=== PATIENT | female | born 1965 | race Caucasian/White ===

== ENCOUNTER 2016-06-25 12:58 | Inpatient (IN) | payer SELFPAY ==
[~2016-06-25] VITALS: Ht 149.9 cm; Wt 83.0 kg
[2016-06-25] VITALS (12 sets, daily range): BP systolic 136–186; BP diastolic 60–82
--- NOTE | ~2016-06-25 | O ---
[place], [place] OPERATIVE NOTE NAME: [id number] UNIT #: [id number] ROOM: 408 DOCTOR: NATANAEL LEON MD BIRTHDATE: [birth year] DOS: 06/25/2016 PREOPERATIVE DIAGNOSIS: Acute appendicitis. POSTOPERATIVE DIAGNOSIS: Perforated appendicitis without abscess. PROCEDURE: Laparoscopic appendectomy. SURGEON: Natanael Leon M.D. ANESTHESIA: General endotracheal. ESTIMATED BLOOD LOSS: 25 mL. COMPLICATIONS: None. INDICATIONS: This patient is a 50-year-old white female who was admitted from the ER with a 3-day history of abdominal pain. CT scan was highly suggestive of appendicitis. Her white blood cell count was 18,000 and clinical exam was consistent with appendicitis as well. After discussing options with her, she elected to proceed with surgery. She is brought for appendectomy. DESCRIPTION OF PROCEDURE: The patient was placed on the operating table in supine position. After achieving adequate general endotracheal anesthesia, a Franco catheter was inserted following which the abdomen was then prepped and draped in sterile fashion. A small vertical midline supraumbilical incision was then made. Incision was carried down through the subcutaneous fat to expose the fascia. Fascia was then opened transversely and the peritoneal cavity was entered. 0 Vicryl stay sutures were placed in the fascia, following which the Muna blunt port was then inserted. After the development of an adequate pneumoperitoneum, the laparoscope was then introduced. Visualization of the tissues immediately deep to our insertion site revealed no evidence of injury to the bowel or any other structures. Upon visual inspection of the abdomen, immediately noted is purulent turbid appearing fluid in the pelvis. The omentum is covering the right lower quadrant. There were no other significant abnormalities noted initially. A small vertical midline incision was made just superior to the pubis through which a 5 mm port was then inserted under direct visualization. A small transverse incision was made in the left lower quadrant through which a 12 mm port was inserted under direct visualization. Two Endo Babcocks were then inserted and the omentum was then retracted superiorly exposing the markedly thickened and inflamed appendix with its tip densely adherent to one area of omentum. This appears to be the site of perforation. The Endo Higginson was then used to retract the appendix and cecum medially, EndoShears was then used to take down the adhesions to the cecum for mobilization. The appendix was adherent to the terminal ileum as well as to the small bowel mesentery in this area. Blunt dissection was then used to separate these structures. The appendix was then elevated towards the anterior abdominal wall and using the Endo Peanut, blunt dissection was then performed at the base of the appendix to create a window in the mesoappendix. After successfully completing this maneuver, the Endo-NELSON was then brought in through the left [place], [place] OPERATIVE NOTE NAME: MARY TUBBS UNIT #: [id number] ROOM: [facility] DOCTOR: NATANAEL LEON MD BIRTHDATE: [birth year] lower quadrant port site, the Endo-NELSON 45 with a vascular load was then passed across the appendix at its origin and the appendix was then transected noting that the tip of the appendix was densely adherent to the omentum. Another firing of the Endo-NELSON was performed across the omentum to mobilize the tip of the appendix and the remaining mesoappendix was then also transected with 2 additional firings of the Endo-NELSON completely freeing the appendix. An EndoCatch was then brought onto the field and passed through the umbilical port site with the scope brought into the left lower quadrant port site. The appendix was placed in the EndoCatch and brought out through the umbilical port site without difficulty. After reinserting the Hidalgo and redeveloping the pneumoperitoneum, copious irrigation was then performed of the structures in the right lower quadrant and throughout the pelvis and the right upper quadrant and perihepatic tissues. Excellent hemostasis was noted at all staple lines and in the mesentery until the 3 liters of irrigation was used. At that point, the left lower quadrant port was removed. An 0 Vicryl suture was used to close the fascia at this port site. The pneumoperitoneum was redeveloped to ensure that there was no entrapment of intra-abdominal tissues in this closure. At that point, the 2 remaining ports were then removed and the pneumoperitoneum completely decompressed as well as manually decompressed. The fascia at the umbilical port site was closed with an additional 0 Vicryl suture in [id number] fashion and existing sutures were then tied. Copious irrigation was performed at all port sites and after assuring good hemostasis, the skin was closed with a running 4-0 Monocryl subcuticular stitch at the umbilical and left lower quadrant ports and the suprapubic port site was closed with 2 interrupted 4-0 Monocryl sutures, subcuticular sutures and the skin glue was then applied. The patient tolerated the procedure well and taken to PACU in good condition. All tape, needle, sponge, and instrument counts were correct. NATANAEL LEON MD CM:OPRECORD:OPERATIVE NOTE 41 23 NATANAEL LEON MD 06/25/162123 interface
[2016-06-25] MEDS ORDERED: VITAMIN C500 M1 PO (13:07)
[2016-06-25 13:37] LABS: BASO % 0.2 % (0.0-1.0); EOS % 0.1 % (1.0-4.0); HEMATOCRIT 42.4 % (37.0-47.0); HEMOGLOBIN 13.9 g/dl (12.0-16.0); IG # 0.1 10*3/uL (0.0-0.1); LYMPH # 1.7 10*3/uL (1.3-4.4); LYMPH % 9.3 % (27.0-41.0); MEAN CELL VOLUME 88.9 fl (81.0-99.0); MEAN CORPUSCULAR HGB 29.1 pg (27.0-31.0); MEAN CORPUSCULAR HGB CONC 32.8 g/dl (33.0-37.0); MEAN PLATELET VOLUME 10.6 fl (9.6-12.3); MONO % 5.2 % (3.0-9.0); NEUT # 15.9 10*3/uL (2.3-7.9); NEUT % 84.7 % (47.0-73.0); PLATELET COUNT AUTOMATED 308 10*3/uL (130-400); RED BLOOD COUNT 4.77 10*6/uL (4.10-5.10); WHITE BLOOD COUNT 18.7 10*3/uL (4.8-10.8)
[2016-06-25 13:37] LABS: BILIRUBIN NEGATIVE (NEGATIVE); BLOOD NEGATIVE (NEGATIVE); CLARITY SL CLOUDY (CLEAR); COLOR YELLOW (YELLOW); GLUCOSE NEGATIVE (NEGATIVE); KETONE 2+ (NEGATIVE); LEUKO ESTERASE NEGATIVE (NEGATIVE); NITRITE NEGATIVE (NEGATIVE); PROTEIN NEGATIVE (NEGATIVE); UROBILINOGEN 0.2 E.U./dl (0.2-1.0)
[2016-06-25 13:44] LABS: MUCOUS 2+; URINE REFLEX COMMENT NO (NO)
[2016-06-25 13:58] LABS: ALBUMIN 3.8 gm/dl (3.1-4.5); ALKALINE PHOSPHATASE 102 U/L (45-117); BILIRUBIN, TOTAL 0.5 mg/dl (0.2-1.0); BUN 12 mg/dl (7-24); CARBON DIOXIDE 26 mmol/L (21-32); CHLORIDE 104 mmol/L (98-107); EST GLOM FILT AFRICAN AMERICAN > 60 ml/min; GLUCOSE 133 mg/dL (65-99); MAGNESIUM 2.3 mg/dL (1.5-2.1); POTASSIUM 3.5 mmol/L (3.5-5.1); SGOT/AST 11 IU/L (3-35); SGPT/ALT 17 U/L (12-78); SODIUM 142 mmol/L (136-145); TOTAL PROTEIN 7.3 gm/dL (6.4-8.2)
[2016-06-25] MEDS ORDERED: B COMPLEX1 EACH PO (17:11)
[2016-06-25] MEDS ORDERED: VITAMIN E400 UNI2 PO (17:12)
[2016-06-25] MEDS ORDERED: VITAMIN B1250 MCG PO (17:12)
[2016-06-25] MEDS ORDERED: ZYRTEC10 M3 PO (17:13)
[2016-06-25 17:43] LABS: PROTHROMBIN TIME 10.7 SECONDS (9.0-12.4)
[2016-06-26] VITALS: BP 146/65
[2016-06-26 04:00] VITALS: BP 122/70
[2016-06-26 06:58] LABS: BASO % 0.1 % (0.0-1.0); IG # 0.1 10*3/uL (0.0-0.1); LYMPH # 0.8 10*3/uL (1.3-4.4); LYMPH % 5.3 % (27.0-41.0); MEAN CELL VOLUME 88.8 fl (81.0-99.0); MEAN CORPUSCULAR HGB 28.9 pg (27.0-31.0); MEAN CORPUSCULAR HGB CONC 32.6 g/dl (33.0-37.0); MEAN PLATELET VOLUME 10.5 fl (9.6-12.3); MONO # 0.7 10*3/uL (0.1-1.0); MONO % 4.5 % (3.0-9.0); NEUT # 13.1 10*3/uL (2.3-7.9); NEUT % 89.6 % (47.0-73.0); PLATELET COUNT AUTOMATED 232 10*3/uL (130-400); RED BLOOD COUNT 3.49 10*6/uL (4.10-5.10); RED CELL DISTRI WIDTH 14.4 % (0-14.5); WHITE BLOOD COUNT 14.6 10*3/uL (4.8-10.8)
[2016-06-26 07:00] LABS: HEMOGLOBIN 10.1 g/dl (12.0-16.0)
[2016-06-26 07:32] LABS: BUN 9 mg/dl (7-24); CARBON DIOXIDE 25 mmol/L (21-32); CHLORIDE 107 mmol/L (98-107); CHOLESTEROL 162 mg/dL (<200); EST GLOM FILT AFRICAN AMERICAN > 60 ml/min; GLUCOSE 152 mg/dL (65-99); HDL CHOLESTEROL 52 mg/dl (40-60); LDL CHOLESTEROL 91 mg/dL (9-159); POTASSIUM 3.6 mmol/L (3.5-5.1); SODIUM 140 mmol/L (136-145); TRIGLYCERIDES 93 mg/dl (<150); VLDL CHOLESTEROL 19 mg/dL (6-40)
[2016-06-26 08:00] VITALS: BP 131/64
[2016-06-26 08:40] LABS: FOLIC ACID 17.86 ng/mL (>5.38)
[2016-06-26] MEDS ORDERED: Motrin,Rufen800 MG PO (10:02)
[2016-06-26 12:00] VITALS: BP 131/60
== END 2016-06-26 15:05 | disposition home or self-care (01) | DRG 343 ==
LOC: ED 12:58 → EDHOLD 14:48 → 4E 15:02
PROVIDERS: Family Medicine; Nurse Practitioner Family; Surgery
PROC: 0DTJ4ZZ Resection of Appendix, Percutaneous Endoscopic Approach (ICD-10-PCS; principal; 2016-06-25)
DX: K35.80 Unspecified acute appendicitis (principal); I10 Essential (primary) hypertension; E66.9 Obesity, unspecified; D72.829 Elevated white blood cell count, unspecified; R19.7 Diarrhea, unspecified; J30.1 Allergic rhinitis due to pollen; G89.29 Other chronic pain; M54.9 Dorsalgia, unspecified; Z82.0 Family history of epilepsy and other diseases of the nervous system; Z88.6 Allergy status to analgesic agent; Z82.49 Family history of ischemic heart disease and other diseases of the circulatory system; Z84.89 Family history of other specified conditions; Z83.49 Family history of other endocrine, nutritional and metabolic diseases; Z88.2 Allergy status to sulfonamides; Z88.1 Allergy status to other antibiotic agents; Z88.5 Allergy status to narcotic agent; Z79.1 Long term (current) use of non-steroidal anti-inflammatories (NSAID); Z79.899 Other long term (current) drug therapy; Z68.37 Body mass index [BMI] 37.0-37.9, adult

== ENCOUNTER 2016-06-30 11:47 | Emergency (ER) | payer SELFPAY ==
[~2016-06-30] VITALS: Ht 149.8 cm; Wt 77.1 kg
[~2016-06-30 11:47] MED LIST: B COMPLEX1 EACH PO; Motrin,Rufen800 MG PO; VITAMIN B1250 MCG PO; VITAMIN C500 M1 PO; VITAMIN E400 UNI2 PO; ZYRTEC10 M3 PO
[2016-06-30 12:32] LABS: BASO % 0.2 % (0.0-1.0); EOS # 0.2 10*3/uL (0.0-0.4); EOS % 2.1 % (1.0-4.0); HEMOGLOBIN 11.1 g/dl (12.0-16.0); IG # 0.1 10*3/uL (0.0-0.1); LYMPH # 1.4 10*3/uL (1.3-4.4); LYMPH % 16.4 % (27.0-41.0); MEAN CELL VOLUME 88.3 fl (81.0-99.0); MEAN CORPUSCULAR HGB 28.8 pg (27.0-31.0); MEAN CORPUSCULAR HGB CONC 32.6 g/dl (33.0-37.0); MEAN PLATELET VOLUME 9.9 fl (9.6-12.3); MONO # 0.6 10*3/uL (0.1-1.0); MONO % 7.3 % (3.0-9.0); NEUT # 6.3 10*3/uL (2.3-7.9); NEUT % 73.4 % (47.0-73.0); PLATELET COUNT AUTOMATED 303 10*3/uL (130-400); RED BLOOD COUNT 3.85 10*6/uL (4.10-5.10); RED CELL DISTRI WIDTH 13.8 % (0-14.5); WHITE BLOOD COUNT 8.5 10*3/uL (4.8-10.8)
[2016-06-30 12:45] LABS: ALBUMIN 3.6 gm/dl (3.1-4.5); ALKALINE PHOSPHATASE 92 U/L (45-117); BILIRUBIN, TOTAL 0.7 mg/dl (0.2-1.0); BUN 7 mg/dl (7-24); CARBON DIOXIDE 30 mmol/L (21-32); CHLORIDE 103 mmol/L (98-107); EST GLOM FILT AFRICAN AMERICAN > 60 ml/min; GLUCOSE 94 mg/dL (65-99); POTASSIUM 2.9 mmol/L (3.5-5.1); SGOT/AST 16 IU/L (3-35); SGPT/ALT 16 U/L (12-78); SODIUM 144 mmol/L (136-145); TOTAL PROTEIN 7.2 gm/dL (6.4-8.2)
[2016-06-30] MEDS ORDERED: K-TAB20 MEQ PO (16:45)
[2016-06-30] MEDS ORDERED: KEFLEX500 M1 PO (16:45)
== END 2016-06-30 17:22 | disposition home or self-care (01) ==
LOC: ED 11:47
PROVIDERS: Nurse Practitioner Family
DX: L03.311 Cellulitis of abdominal wall (principal); R03.0 Elevated blood-pressure reading, without diagnosis of hypertension; E87.6 Hypokalemia; Z88.6 Allergy status to analgesic agent; Z88.1 Allergy status to other antibiotic agents; Z88.2 Allergy status to sulfonamides; Z79.899 Other long term (current) drug therapy; Z90.49 Acquired absence of other specified parts of digestive tract

== ENCOUNTER 2017-12-26 12:12 | Emergency (ER) | payer OTHER ==
[~2017-12-26] VITALS: Ht 149.8 cm; Wt 83.9 kg
--- NOTE | ~2017-12-26 | EKG ---
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
[~2017-12-26 12:12] MED LIST changes: +K-TAB20 MEQ PO; +KEFLEX500 M1 PO
[2017-12-26] MEDS ORDERED: HAWTHORN BERRY PO (12:29)
[2017-12-26 13:11] LABS: BASO % 0.5 % (0.0-1.0); EOS # 0.2 10*3/uL (0.0-0.4); EOS % 2.4 % (1.0-4.0); HEMATOCRIT 41.9 % (37.0-47.0); HEMOGLOBIN 14.2 g/dl (12.0-16.0); LYMPH # 1.1 10*3/uL (1.3-4.4); MEAN CELL VOLUME 89.1 fl (81.0-99.0); MEAN CORPUSCULAR HGB 30.2 pg (27.0-31.0); MEAN CORPUSCULAR HGB CONC 33.9 g/dl (33.0-37.0); MONO # 0.7 10*3/uL (0.1-1.0); NEUT # 4.3 10*3/uL (2.3-7.9); NEUT % 67.8 % (47.0-73.0); PLATELET COUNT AUTOMATED 242 10*3/uL (130-400); RED CELL DISTRI WIDTH 12.9 % (0-14.5); WHITE BLOOD COUNT 6.3 10*3/uL (4.8-10.8)
[2017-12-26 13:20] LABS: ACT PARTIAL THROMBO TIME 28.1 SECONDS (20.8-31.5)
[2017-12-26 13:26] LABS: ALBUMIN 3.8 gm/dl (3.1-4.5); ALKALINE PHOSPHATASE 90 U/L (45-117); BUN 5 mg/dl (7-24); CHLORIDE 105 mmol/L (98-107); CREATININE 0.75 mg/dL (0.55-1.02); LIPASE 105 U/L (73-393); POTASSIUM 3.6 mmol/L (3.5-5.1); SGOT/AST 12 IU/L (3-35); SGPT/ALT 17 U/L (12-78); SODIUM 139 mmol/L (136-145); TOTAL PROTEIN 7.3 gm/dL (6.4-8.2); TROPONIN I < 0.015 ng/ml (<0.045)
[2017-12-26] MEDS ORDERED: DOXYCYCLINE100 M3 PO (14:21)
== END 2017-12-26 14:30 | disposition home or self-care (01) ==
LOC: ED 12:12
PROVIDERS: Emergency Medicine
DX: J20.9 Acute bronchitis, unspecified (principal); I10 Essential (primary) hypertension; G89.29 Other chronic pain; E66.9 Obesity, unspecified; Z68.30 Body mass index [BMI] 30.0-30.9, adult; Z90.49 Acquired absence of other specified parts of digestive tract; Z88.8 Allergy status to other drugs, medicaments and biological substances; Z88.5 Allergy status to narcotic agent; Z88.2 Allergy status to sulfonamides; Z88.1 Allergy status to other antibiotic agents; Z79.899 Other long term (current) drug therapy

== ENCOUNTER → 2018-08-28 | Outpatient (CLI) | payer OTHER ==
[~2018-08-28] MED LIST changes: +AMLODIPINE BESYL5 MG PO; +ATORVASTATIN CA20 M1 PO; +COMPAZINE10 M1 PO; +COMPAZINE5 M3 PO; +DIFLUCAN150 MG PO; +DOXYCYCLINE100 M3 PO; +HAWTHORN BERRY PO; +HYDROCHLOROTHIA25 M1 PO; +KLOR-CON M2020 ME1 PO; +LOPRESSOR25 MG PO; +MACROBID100 M1 PO; +MAGNESIUM OXID400 MG PO; +OMEPRAZOLE D/R20 MG PO; +POTASSIUM CHLO10 MEQ PO; +PROCHLORPERAZIN10 MG PO; +ZANTAC 150150 MG PO; +ZOSYN 3.373.375 GM/5 IV
== END | disposition home or self-care (01) ==
LOC: MAMMO 12:39
DX: N63.10 Unspecified lump in the right breast, unspecified quadrant (principal); N63.20 Unspecified lump in the left breast, unspecified quadrant; C56.9 Malignant neoplasm of unspecified ovary

== ENCOUNTER → 2018-08-30 | Outpatient (CLI) | payer OTHER | END | disposition home or self-care (01) | LOC: CT 00:40 | DX: C56.9 Malignant neoplasm of unspecified ovary (principal); N63.11 Unspecified lump in the right breast, upper outer quadrant; Z87.42 Personal history of other diseases of the female genital tract ==

== ENCOUNTER → 2018-10-18 | Outpatient (CLI) | payer OTHER | END | disposition home or self-care (01) | LOC: RAD 10:51 | DX: C56.9 Malignant neoplasm of unspecified ovary (principal); M53.3 Sacrococcygeal disorders, not elsewhere classified ==

== ENCOUNTER 2018-10-23 20:32 | Inpatient (IN) | payer OTHER ==
[~2018-10-23] VITALS: Ht 149.8 cm; Wt 61.8 kg
--- NOTE | ~2018-10-23 | EKG ---
[place], [place] ELECTROCARDIOGRAM REPORT NAME: MARY TUBBS UNIT #: [id number] ROOM: 516 DOCTOR: ALEKSANDR DRAFT REPORT BIRTHDATE: [birth year] [facility] Test Date: 2018-10-23 Test Time: 21:22:31 Pat Name: MARY TUBBS Department: Room: 516 Gender: F Gasoline Engine Assembler: : 1965 Requested By: RU AGUIAR Order Number: [id number] Reading MD: Pita Pierce MD Measurements Intervals Gruver Rate: 89 P: 62 [place]: 150 QRS: 2 QRSD: 89 T: 19 QT: 366 QTc: 446 Interpretive Statements Sinus rhythm Compared to ECG 07/31/2018 09:44:49 Left ventricular hypertrophy no longer present T-wave abnormality no longer present Electronically Signed On 10-24-2018 12:28:56 PDT by Pita Pierce MD CM:EKGRPT:ELECTROCARDIOGRAM REPORT 21 1228 RU BRANDON DRAFT REPORT RU AGUIAR MD
[~2018-10-23 20:32] MED LIST changes: -AMLODIPINE BESYL5 MG PO
[2018-10-23 20:36] VITALS: BP 145/66
[2018-10-23 21:11] LABS: BILIRUBIN 1+ (NEGATIVE); BLOOD TRACE-INTACT (NEGATIVE); CLARITY SL CLOUDY (CLEAR); COLOR YELLOW (YELLOW); GLUCOSE NEGATIVE (NEGATIVE); KETONE TRACE (NEGATIVE); LEUKO ESTERASE TRACE (NEGATIVE); NITRITE NEGATIVE (NEGATIVE); PH 5.5 (5.0-9.0); SPECIFIC GRAVITY 1.025 (1.005-1.030); UROBILINOGEN 0.2 E.U./dl (0.2-1.0)
[2018-10-23 21:17] LABS: EPITHELIAL CELLS 21-30; MUCOUS 3+
[2018-10-23 21:18] LABS: BACTERIA 2+
[2018-10-23 21:34] LABS: HEMATOCRIT 29.8 % (37.0-47.0); HEMOGLOBIN 10.2 g/dl (12.0-16.0); MEAN CORPUSCULAR HGB 33.9 pg (27.0-31.0); MEAN CORPUSCULAR HGB CONC 34.2 g/dl (33.0-37.0); MEAN PLATELET VOLUME 11.5 fl (9.6-12.3); PLATELET COUNT AUTOMATED 46 10*3/uL (130-400); RED BLOOD COUNT 3.01 10*6/uL (4.10-5.10); RED CELL DISTRI WIDTH 13.7 % (0-14.5)
[2018-10-23 21:45] LABS: ACT PARTIAL THROMBO TIME 27.6 SECONDS (20.0-32.1); INTERNATIONAL NORM RATIO 0.9 (2.0-3.5)
--- NOTE | 2018-10-23 21:50 | NUR ---
NEUTROPENIC PRECAUTIONS INITIATED.
[2018-10-23 21:51] LABS: ALBUMIN 3.4 gm/dl (3.1-4.5); ALKALINE PHOSPHATASE 95 U/L (45-117); BUN 22 mg/dl (7-24); CHLORIDE 100 mmol/L (98-107); CREATININE 0.81 mg/dL (0.55-1.02); LIPASE 76 U/L (73-393); POTASSIUM 3.4 mmol/L (3.5-5.1); SGOT/AST 12 IU/L (3-35); SGPT/ALT 17 U/L (12-78); SODIUM 133 mmol/L (136-145); TOTAL PROTEIN 6.7 gm/dL (6.4-8.2)
[2018-10-23 21:53] LABS: TROPONIN I < 0.015 ng/ml (<0.045)
--- NOTE | 2018-10-23 21:55 | NUR ---
DR. YIN NOTIFIED OF CRITICAL LAB RESULT.
[2018-10-23 22:09] LABS: TOTAL CELLS COUNTED 100 #CELLS
[2018-10-23 22:10] LABS: PLATELET SUFFICIENCY LOW (NORMAL)
[2018-10-23 22:20] LABS: WHITE BLOOD COUNT 1.4 10*3/uL (4.8-10.8)
[2018-10-23 23:52] VITALS: BP 142/72
--- NOTE | 2018-10-24 | NUR ---
PATIENT PROVIDE DMASK FOR TRANSPORTATION
[2018-10-24 00:08] VITALS: BP 145/56
--- NOTE | 2018-10-24 00:08 | NUR ---
A 53, admitted to 5E, under the services of ALPESH Polanco DO with a diagnosis of FEVER. Chief complaint is FEVER. Patient arrived via CART from ER. Monitor applied. Initial assessment completed. Vital signs taken and recorded. ALPESH POLANCO DO notified of admission to the unit. Orders received. See assessment for past medical history, medications and allergies. Patient and/or family oriented to unit. [facility] 5E visitation policy reviewed. Clothing/patient valuable form completed. PT HAS NO OPEN AREAS AND IS INDEPENDENT. PT HAS A MEDIPORT IN THE RT UPPER CHEST. PT HAS NO COMPLIANTS AT THIS TIME. RACHEL CAMPBELL
--- NOTE | 2018-10-24 01:07 | NUR ---
CALLED DR. XAVIER AND NOTIFIED HER THAT MED REQ WAS UP TO DATE EXCEPT FOR THE PATIENTS BP MEDICATION. PT STATED THAT SHE WOULD BE ABLE TO GET THAT VERIFIED IN THE AM. SEE ORDERS.
[2018-10-24 06:55] LABS: HEMATOCRIT 25.9 % (37.0-47.0); HEMOGLOBIN 8.8 g/dl (12.0-16.0); MEAN PLATELET VOLUME 11.2 fl (9.6-12.3); PLATELET COUNT AUTOMATED 36 10*3/uL (130-400); RED BLOOD COUNT 2.59 10*6/uL (4.10-5.10); RED CELL DISTRI WIDTH 13.7 % (0-14.5)
[2018-10-24 06:58] LABS: WHITE BLOOD COUNT 1.6 10*3/uL (4.8-10.8)
[2018-10-24 07:05] LABS: ACT PARTIAL THROMBO TIME 29.2 SECONDS (20.0-32.1)
[2018-10-24 07:22] LABS: BUN 14 mg/dl (7-24); CHLORIDE 107 mmol/L (98-107); POTASSIUM 3.5 mmol/L (3.5-5.1); SODIUM 139 mmol/L (136-145)
[2018-10-24 07:30] LABS: PLATELET SUFFICIENCY LOW (NORMAL); TOTAL CELLS COUNTED 100 #CELLS
[2018-10-24 07:36] LABS: CHOLESTEROL 148 mg/dL (<200); CREATININE 0.59 mg/dL (0.55-1.02); HDL CHOLESTEROL 37 mg/dl (40-60); LDL CHOLESTEROL 77 mg/dL (9-159); PHOSPHOROUS 3.5 mg/dL (2.5-4.9); TRIGLYCERIDES 169 mg/dl (<150); VLDL CHOLESTEROL 34 mg/dL (6-40)
[2018-10-24 08:00] VITALS: BP 140/60
[2018-10-24 08:39] LABS: VITAMIN D, 25-HYDROXY 24.1 ng/mL (30-100)
[2018-10-24] MEDS ORDERED: AMLODIPINE BESYL5 MG PO (10:55)
[2018-10-24 12:00] VITALS: BP 139/64
--- NOTE | 2018-10-24 12:07 | NUR ---
Industrial Maintenance Technician in to talk to patient. Patient states lives at HOME with . There are FEW steps in the home. Physician: DANISHA Pharmacy: [facility] [place] [facility]: [facility] Patient's level of ADLs: MINIMAL ASSIST Patient has working utilities: YES DME: NONE Follow-up physician's appointment after d/c: PT STATES SHE SEE HER ONCOLOGIST AND HAS VISITING PHYSICIANS Does patient want to access PORTAL?: NO Discharge plan PT STATES SHE WILL RETURN HOME WITH HER ON DISCHARGE WITH [facility]. DENIES SHE WILL HAVE ANY OTHER NEEDS AT THIS TIME. STATES SHE HAS EVERYTHING IN PLACE SHE NEEDS. WILL CONTINUE TO FOLLOW. STATES SHE WILL HAVE A RIDE HOME.. TAMIKO ONEILL
[2018-10-24 16:00] VITALS: BP 112/96
--- NOTE | 2018-10-24 19:13 | NUR ---
24 HR chart check completed.
[2018-10-24 20:00] VITALS: BP 128/61
[2018-10-25] VITALS: BP 126/60
[2018-10-25 06:49] LABS: HEMATOCRIT 25.4 % (37.0-47.0); HEMOGLOBIN 8.6 g/dl (12.0-16.0); MEAN CORPUSCULAR HGB 33.9 pg (27.0-31.0); MEAN CORPUSCULAR HGB CONC 33.9 g/dl (33.0-37.0); MEAN PLATELET VOLUME 12.2 fl (9.6-12.3); PLATELET COUNT AUTOMATED 35 10*3/uL (130-400); RED BLOOD COUNT 2.54 10*6/uL (4.10-5.10); RED CELL DISTRI WIDTH 13.5 % (0-14.5); WHITE BLOOD COUNT 2.8 10*3/uL (4.8-10.8)
[2018-10-25 07:37] LABS: BASOPHILS 1 % (0-1); TOTAL CELLS COUNTED 100 #CELLS
[2018-10-25 07:38] LABS: DOHLE BODIES FEW; PLATELET SUFFICIENCY LOW (NORMAL); TOXIC GRANULATION SLIGHT
[2018-10-25 08:00] VITALS: BP 136/55
--- NOTE | 2018-10-25 11:24 | NUR ---
PT CONTINUES TO DENY SHE WILL HAVE NEEDS ON DISCHARGE. [facility] WILL CONTINUE TO FOLLOW.
[2018-10-25 12:00] VITALS: BP 136/61
--- NOTE | 2018-10-25 12:34 | NUR ---
CLINICALS AND ORDER TO RESUME HOME HEALTH FAXED TO [facility].
[2018-10-25 18:00] VITALS: BP 142/63
[2018-10-25 20:00] VITALS: BP 138/72
[2018-10-26] VITALS: BP 125/58
[2018-10-26 06:03] LABS: WHITE BLOOD COUNT 5.2 10*3/uL (4.8-10.8)
[2018-10-26 06:05] LABS: HEMATOCRIT 26.1 % (37.0-47.0); HEMOGLOBIN 8.8 g/dl (12.0-16.0); MEAN CELL VOLUME 99.6 fl (81.0-99.0); MEAN CORPUSCULAR HGB 33.6 pg (27.0-31.0); MEAN CORPUSCULAR HGB CONC 33.7 g/dl (33.0-37.0); MEAN PLATELET VOLUME 12.8 fl (9.6-12.3); PLATELET COUNT AUTOMATED 45 10*3/uL (130-400); RED BLOOD COUNT 2.62 10*6/uL (4.10-5.10); RED CELL DISTRI WIDTH 13.6 % (0-14.5)
[2018-10-26 07:09] LABS: PLATELET SUFFICIENCY LOW (NORMAL); TOTAL CELLS COUNTED 100 #CELLS
[2018-10-26 08:00] VITALS: BP 134/53
--- NOTE | 2018-10-26 11:32 | NUR ---
Discharge instructions reviewed with patient/family. Patient receptive and verbalizes understanding. Follow-up care arranged. Written instructions given to patient/family. DEZ MITCHELL
== END 2018-10-26 12:25 | disposition home health service (06) | DRG 871 ==
LOC: ED 20:32 → 5E 23:46 → EDHOLD 23:46 → 5E 23:47
PROVIDERS: Emergency Medicine Emergency Medical Services; Internal Medicine; Student in an Organized Health Care Education/Training Program; ADMIT Internal Medicine
DX: A41.9 Sepsis, unspecified organism (principal); D61.810 Antineoplastic chemotherapy induced pancytopenia; E87.1 Hypo-osmolality and hyponatremia; E44.1 Mild protein-calorie malnutrition; N30.01 Acute cystitis with hematuria; C56.9 Malignant neoplasm of unspecified ovary; I42.9 Cardiomyopathy, unspecified; C78.7 Secondary malignant neoplasm of liver and intrahepatic bile duct; R50.81 Fever presenting with conditions classified elsewhere; J01.90 Acute sinusitis, unspecified; E87.6 Hypokalemia; R70.0 Elevated erythrocyte sedimentation rate; J30.2 Other seasonal allergic rhinitis; M54.5 Low back pain; G89.29 Other chronic pain; E78.5 Hyperlipidemia, unspecified; E66.9 Obesity, unspecified; R73.9 Hyperglycemia, unspecified; K21.9 Gastro-esophageal reflux disease without esophagitis; E55.9 Vitamin D deficiency, unspecified; E53.8 Deficiency of other specified B group vitamins; Z92.21 Personal history of antineoplastic chemotherapy; Z88.2 Allergy status to sulfonamides; Z88.6 Allergy status to analgesic agent; Z88.8 Allergy status to other drugs, medicaments and biological substances; Z79.899 Other long term (current) drug therapy; Z90.49 Acquired absence of other specified parts of digestive tract; Z90.710 Acquired absence of both cervix and uterus; Z90.89 Acquired absence of other organs; Z82.49 Family history of ischemic heart disease and other diseases of the circulatory system; Z82.0 Family history of epilepsy and other diseases of the nervous system; Z80.0 Family history of malignant neoplasm of digestive organs; Z84.89 Family history of other specified conditions; Z68.27 Body mass index [BMI] 27.0-27.9, adult

== ENCOUNTER 2018-11-21 15:08 | Emergency (ER) | payer OTHER ==
[~2018-11-21] VITALS: Ht 149.8 cm; Wt 59.0 kg
[~2018-11-21 15:08] MED LIST changes: +AMLODIPINE BESYL5 MG PO
[2018-11-21 18:07] LABS: HEMATOCRIT 23.4 % (37.0-47.0); HEMOGLOBIN 8.3 g/dl (12.0-16.0); MEAN CELL VOLUME 97.9 fl (81.0-99.0); MEAN CORPUSCULAR HGB 34.7 pg (27.0-31.0); MEAN CORPUSCULAR HGB CONC 35.5 g/dl (33.0-37.0); MEAN PLATELET VOLUME 11.7 fl (9.6-12.3); RED BLOOD COUNT 2.39 10*6/uL (4.10-5.10); RED CELL DISTRI WIDTH 13.8 % (0-14.5)
[2018-11-21 18:20] LABS: WHITE BLOOD COUNT 1.5 10*3/uL (4.8-10.8)
[2018-11-21 18:21] LABS: PLATELET COUNT AUTOMATED 17 10*3/uL (130-400)
[2018-11-21 18:22] LABS: ALBUMIN 3.6 gm/dl (3.1-4.5); ALKALINE PHOSPHATASE 86 U/L (45-117); BUN 18 mg/dl (7-24); CHLORIDE 99 mmol/L (98-107); CREATININE 0.68 mg/dL (0.55-1.02); POTASSIUM 3.5 mmol/L (3.5-5.1); SGOT/AST 5 IU/L (3-35); SGPT/ALT 10 U/L (12-78); SODIUM 133 mmol/L (136-145); TOTAL PROTEIN 6.5 gm/dL (6.4-8.2)
[2018-11-21 18:40] LABS: ATYPICAL LYMPHS 3 % (0-0); TOTAL CELLS COUNTED 100 #CELLS
[2018-11-21 18:41] LABS: BLASTS 2 % (0-0); DOHLE BODIES MODERATE; TOXIC GRANULATION MODERATE
[2018-11-21 18:42] LABS: PLATELET SUFFICIENCY LOW (NORMAL)
== END 2018-11-22 00:15 | disposition home or self-care (01) ==
LOC: ED 15:08
PROVIDERS: Podiatrist Foot & Ankle Surgery
DX: D69.6 Thrombocytopenia, unspecified (principal); R06.02 Shortness of breath; E78.5 Hyperlipidemia, unspecified; K21.9 Gastro-esophageal reflux disease without esophagitis; C56.9 Malignant neoplasm of unspecified ovary; Z90.49 Acquired absence of other specified parts of digestive tract; Z90.710 Acquired absence of both cervix and uterus; Z88.6 Allergy status to analgesic agent; Z88.2 Allergy status to sulfonamides; Z88.1 Allergy status to other antibiotic agents; Z88.5 Allergy status to narcotic agent; Z88.8 Allergy status to other drugs, medicaments and biological substances; Z79.899 Other long term (current) drug therapy

== ENCOUNTER → 2018-11-29 | Outpatient (CLI) | payer OTHER ==
[2018-11-29 10:02] LABS: BUN 9 mg/dl (7-24); CREATININE 0.81 mg/dL (0.55-1.02)
== END | disposition home or self-care (01) ==
LOC: LAB 00:44 → CT 10:00
PROVIDERS: Obstetrics & Gynecology Gynecologic Oncology
DX: C56.9 Malignant neoplasm of unspecified ovary (principal)

== ENCOUNTER → 2019-03-11 | Outpatient (CLI) | payer OTHER | END | disposition home or self-care (01) | LOC: CT 07:54 | DX: C56.9 Malignant neoplasm of unspecified ovary (principal); R10.9 Unspecified abdominal pain; Z90.710 Acquired absence of both cervix and uterus ==

== ENCOUNTER → 2019-05-21 | Day surgery (SDC) | payer OTHER ==
[~2019-05-21] VITALS: Ht 149.8 cm; Wt 64.0 kg
[~2019-05-21] MED LIST changes: +VITAMIN B-1100 M1 PO
[2019-05-21 09:35] VITALS: BP 145/71
[2019-05-21 10:10] VITALS: BP 135/62
[2019-05-21 10:25] VITALS: BP 145/80
[2019-05-21 10:37] VITALS: BP 146/74
--- NOTE | 2019-05-21 10:39 | NUR ---
MEDIPORT FLUSHED WITH SALINE. REMOVED INTACT. SITE ASYMPTOMATIC. PATIENT TOLERATED WELL
== END | disposition home or self-care (01) ==
LOC: SDC 05-16 14:00
DX: R10.32 Left lower quadrant pain (principal); K29.50 Unspecified chronic gastritis without bleeding; K57.30 Diverticulosis of large intestine without perforation or abscess without bleeding; I11.0 Hypertensive heart disease with heart failure; I50.9 Heart failure, unspecified; K44.9 Diaphragmatic hernia without obstruction or gangrene; K21.9 Gastro-esophageal reflux disease without esophagitis; Z98.890 Other specified postprocedural states; Z88.8 Allergy status to other drugs, medicaments and biological substances; Z88.5 Allergy status to narcotic agent; Z79.899 Other long term (current) drug therapy; Z85.89 Personal history of malignant neoplasm of other organs and systems

== ENCOUNTER → 2019-09-15 | Outpatient (CLI) | payer OTHER | END | disposition home or self-care (01) | LOC: CT 00:24 | DX: Z51.12 Encounter for antineoplastic immunotherapy (principal); C56.9 Malignant neoplasm of unspecified ovary ==

== ENCOUNTER → 2019-11-27 | Outpatient (CLI) | payer OTHER | END | disposition home or self-care (01) | LOC: MAMMO 09:30 | PROVIDERS: ATTEND Nurse Practitioner | DX: Z12.31 Encounter for screening mammogram for malignant neoplasm of breast (principal); C56.9 Malignant neoplasm of unspecified ovary ==

== ENCOUNTER → 2020-01-13 | Outpatient (CLI) | payer OTHER ==
[2020-01-13 14:02] LABS: CREATININE 1.41 mg/dL (0.55-1.02); POTASSIUM 4.9 mmol/L (3.5-5.1)
== END | disposition home or self-care (01) ==
LOC: LAB 13:06
PROVIDERS: ATTEND Speech-Language Pathologist
DX: C56.9 Malignant neoplasm of unspecified ovary (principal); Z11.1 Encounter for screening for respiratory tuberculosis

== ENCOUNTER → 2020-01-16 | Outpatient (CLI) | payer OTHER | END | disposition home or self-care (01) | LOC: CT 00:28 | PROVIDERS: ATTEND Speech-Language Pathologist | DX: C56.9 Malignant neoplasm of unspecified ovary (principal); Z51.11 Encounter for antineoplastic chemotherapy; Z51.12 Encounter for antineoplastic immunotherapy ==

== ENCOUNTER → 2020-02-11 | Outpatient (CLI) | payer MEDICARE, MEDICAID | END | disposition home or self-care (01) | LOC: RAD 14:01 | PROVIDERS: ATTEND Podiatrist Foot & Ankle Surgery | DX: M77.31 Calcaneal spur, right foot (principal); S93.491D Sprain of other ligament of right ankle, subsequent encounter; X58.XXXD Exposure to other specified factors, subsequent encounter ==

== ENCOUNTER → 2020-06-18 | Outpatient (CLI) | payer MEDICARE, MEDICAID ==
[2020-06-18 10:46] LABS: BILIRUBIN Negative (Negative); BLOOD 1+ (Negative); CLARITY Clear (Clear); COLOR Yellow (Yellow); GLUCOSE Negative (Negative); KETONE Trace (Negative); LEUKO ESTERASE Trace (Negative); NITRITE Negative (Negative); PH 5.5 (4.5-8.0)
[2020-06-18 10:56] LABS: ALBUMIN 3.4 gm/dl (3.1-4.5); BUN 20 mg/dl (7-24); CHLORIDE 106 mmol/L (98-107); CREATININE 1.05 mg/dL (0.55-1.02); POTASSIUM 4.3 mmol/L (3.5-5.1); SODIUM 141 mmol/L (136-145)
[2020-06-18 13:43] LABS: BACTERIA 2+; MUCOUS 2+
== END | disposition home or self-care (01) ==
LOC: LAB 10:20
PROVIDERS: ATTEND Internal Medicine Nephrology
DX: R80.9 Proteinuria, unspecified (principal)

== ENCOUNTER → 2020-08-03 | Outpatient (CLI) | payer MEDICARE, MEDICAID | END | disposition home or self-care (01) | LOC: CT 00:07 | PROVIDERS: ATTEND Nurse Practitioner Family | DX: C78.7 Secondary malignant neoplasm of liver and intrahepatic bile duct (principal); K76.0 Fatty (change of) liver, not elsewhere classified; C56.9 Malignant neoplasm of unspecified ovary; C79.81 Secondary malignant neoplasm of breast; Z85.038 Personal history of other malignant neoplasm of large intestine; R18.8 Other ascites ==

== ENCOUNTER → 2020-08-23 | Outpatient (CLI) | payer OTHER, MEDICAID ==
[2020-08-23 09:59] LABS: BASO % 0.3 % (0.0-1.0); EOS # 0.2 10*3/uL (0.0-0.4); EOS % 4.2 % (1.0-4.0); HEMATOCRIT 38.5 % (37.0-47.0); LYMPH # 1.3 10*3/uL (1.3-4.4); LYMPH % 36.2 % (27.0-41.0); MEAN CELL VOLUME 94.6 fl (81.0-99.0); MEAN CORPUSCULAR HGB CONC 31.7 g/dl (33.0-37.0); MEAN PLATELET VOLUME 9.3 fl (9.6-12.3); MONO # 0.6 10*3/uL (0.1-1.0); MONO % 15.3 % (3.0-9.0); NEUT # 1.6 10*3/uL (2.3-7.9); NEUT % 43.7 % (47.0-73.0); PLATELET COUNT AUTOMATED 175 10*3/uL (130-400); RED BLOOD COUNT 4.07 10*6/uL (4.10-5.10); RED CELL DISTRI WIDTH 13.4 % (0-14.5); WHITE BLOOD COUNT 3.6 10*3/uL (4.8-10.8)
[2020-08-23 10:14] LABS: ALBUMIN 3.4 gm/dl (3.1-4.5); ALKALINE PHOSPHATASE 97 U/L (45-117); BUN 18 mg/dl (7-24); CHLORIDE 107 mmol/L (98-107); POTASSIUM 3.9 mmol/L (3.5-5.1); SGOT/AST 16 IU/L (3-35); SGPT/ALT 17 U/L (12-78); SODIUM 140 mmol/L (136-145); TOTAL PROTEIN 6.8 gm/dL (6.4-8.2)
== END | disposition home or self-care (01) ==
LOC: LAB 09:40 → MEDIPORT 10:00
PROVIDERS: Speech-Language Pathologist; ATTEND Nurse Practitioner Family
DX: Z45.2 Encounter for adjustment and management of vascular access device (principal); C56.9 Malignant neoplasm of unspecified ovary; Z51.11 Encounter for antineoplastic chemotherapy; Z51.12 Encounter for antineoplastic immunotherapy

== ENCOUNTER → 2020-09-22 | Outpatient (CLI) | payer OTHER, MEDICAID ==
[2020-09-22 10:58] LABS: ALBUMIN 3.4 gm/dl (3.1-4.5); BUN 23 mg/dl (7-24); CHLORIDE 106 mmol/L (98-107); SGOT/AST 21 IU/L (3-35); SGPT/ALT 18 U/L (12-78); SODIUM 140 mmol/L (136-145)
[2020-09-22 11:11] LABS: ALKALINE PHOSPHATASE 101 U/L (45-117); CHOLESTEROL 241 mg/dL (<200); CREATININE 1.07 mg/dL (0.55-1.02); LDL CHOLESTEROL 157 mg/dL (9-159); TOTAL PROTEIN 6.7 gm/dL (6.4-8.2); TRIGLYCERIDES 195 mg/dl (<150)
== END | disposition home or self-care (01) ==
LOC: LAB 09:52
PROVIDERS: ATTEND Physician Assistant Medical
DX: C56.9 Malignant neoplasm of unspecified ovary (principal); I10 Essential (primary) hypertension; E55.9 Vitamin D deficiency, unspecified

== ENCOUNTER → 2020-10-26 | Outpatient (CLI) | payer MEDICARE | END | disposition home or self-care (01) | LOC: MEDIPORT 09:00 → LAB 09:17 | PROVIDERS: ATTEND Nurse Practitioner Family | DX: C56.9 Malignant neoplasm of unspecified ovary (principal); Z95.828 Presence of other vascular implants and grafts ==

== ENCOUNTER → 2020-11-19 | Outpatient (CLI) | payer MEDICARE, OTHER | END | disposition home or self-care (01) | LOC: CT 14:49 | PROVIDERS: ATTEND Anesthesiology Pain Medicine | DX: M47.816 Spondylosis without myelopathy or radiculopathy, lumbar region (principal); M51.36 Other intervertebral disc degeneration, lumbar region; M48.061 Spinal stenosis, lumbar region without neurogenic claudication; M89.38 Hypertrophy of bone, other site; M25.551 Pain in right hip; M25.561 Pain in right knee; M25.562 Pain in left knee; M54.2 Cervicalgia ==

== ENCOUNTER → 2020-11-23 | Outpatient (CLI) | payer MEDICARE, OTHER | END | disposition home or self-care (01) | LOC: LAB 11:19 | PROVIDERS: ATTEND Physician Assistant Medical | DX: C56.9 Malignant neoplasm of unspecified ovary (principal) ==

== ENCOUNTER → 2020-12-06 | Outpatient (CLI) | payer MEDICARE, OTHER | END | disposition home or self-care (01) | LOC: CT 00:09 | PROVIDERS: ATTEND Speech-Language Pathologist | DX: C56.9 Malignant neoplasm of unspecified ovary (principal); R97.8 Other abnormal tumor markers; K76.0 Fatty (change of) liver, not elsewhere classified ==

== ENCOUNTER → 2020-12-21 | Outpatient (CLI) | payer MEDICARE, OTHER | END | disposition home or self-care (01) | LOC: MEDIPORT 08:00 | PROVIDERS: ATTEND Nurse Practitioner Family | DX: C56.2 Malignant neoplasm of left ovary (principal); Z95.828 Presence of other vascular implants and grafts ==

== ENCOUNTER 2020-12-23 20:02 | Emergency (ER) | payer MEDICARE, OTHER ==
[~2020-12-23] VITALS: Wt 81.6 kg
== END 2020-12-23 23:54 | disposition left against medical advice (07) ==
LOC: ED 20:02
DX: R50.9 Fever, unspecified (principal); J02.9 Acute pharyngitis, unspecified; Z53.21 Procedure and treatment not carried out due to patient leaving prior to being seen by health care provider

== ENCOUNTER → 2020-12-24 | Outpatient (CLI) | payer MEDICARE, OTHER | END | disposition home or self-care (01) | LOC: COVID19 17:00 | PROVIDERS: ATTEND Internal Medicine | DX: Z11.52 Encounter for screening for COVID-19 (principal) ==

== ENCOUNTER → 2021-02-11 | Outpatient (CLI) | payer MEDICARE, OTHER | END | disposition home or self-care (01) | LOC: US 00:11 | PROVIDERS: ATTEND Family Medicine | DX: R31.9 Hematuria, unspecified (principal); K80.20 Calculus of gallbladder without cholecystitis without obstruction ==

== ENCOUNTER → 2021-02-15 | Outpatient (CLI) | payer MEDICARE, OTHER | END | disposition home or self-care (01) | LOC: MEDIPORT 00:41 → LAB 00:41 → MEDIPORT 10:00 | PROVIDERS: ATTEND Speech-Language Pathologist | DX: Z45.2 Encounter for adjustment and management of vascular access device (principal); C56.9 Malignant neoplasm of unspecified ovary ==

== ENCOUNTER → 2021-03-15 | Outpatient (CLI) | payer MEDICARE, OTHER | END | disposition home or self-care (01) | LOC: LAB 11:14 | PROVIDERS: ATTEND Physician Assistant Medical | DX: C56.9 Malignant neoplasm of unspecified ovary (principal) ==

== ENCOUNTER → 2021-04-12 | Outpatient (CLI) | payer MEDICARE, OTHER | END | disposition home or self-care (01) | LOC: LAB 13:32 | PROVIDERS: ATTEND Physician Assistant Medical | DX: C56.9 Malignant neoplasm of unspecified ovary (principal) ==

== ENCOUNTER → 2021-04-19 | Outpatient (CLI) | payer MEDICARE, OTHER | END | disposition home or self-care (01) | LOC: MEDIPORT 04-15 10:00 | PROVIDERS: ATTEND Nurse Practitioner Family | DX: Z45.2 Encounter for adjustment and management of vascular access device (principal); C56.2 Malignant neoplasm of left ovary; Z95.828 Presence of other vascular implants and grafts ==

== ENCOUNTER → 2021-05-09 | Outpatient (CLI) | payer MEDICARE, OTHER ==
[2021-05-09 14:56] LABS: BASO % 0.4 % (0.0-1.0); EOS # 0.3 10*3/uL (0.0-0.4); EOS % 4.7 % (1.0-4.0); HEMATOCRIT 38.6 % (37.0-47.0); LYMPH # 1.5 10*3/uL (1.3-4.4); LYMPH % 27.6 % (27.0-41.0); MEAN CELL VOLUME 90.6 fl (81.0-99.0); MEAN CORPUSCULAR HGB 29.1 pg (27.0-31.0); MEAN CORPUSCULAR HGB CONC 32.1 g/dl (33.0-37.0); MEAN PLATELET VOLUME 9.5 fl (9.6-12.3); MONO # 0.6 10*3/uL (0.1-1.0); MONO % 10.8 % (3.0-9.0); NEUT # 3.1 10*3/uL (2.3-7.9); NEUT % 56.3 % (47.0-73.0); PLATELET COUNT AUTOMATED 246 10*3/uL (130-400); RED BLOOD COUNT 4.26 10*6/uL (4.10-5.10); RED CELL DISTRI WIDTH 13.8 % (0-14.5); WHITE BLOOD COUNT 5.6 10*3/uL (4.8-10.8)
[2021-05-09 15:13] LABS: ALKALINE PHOSPHATASE 114 U/L (45-117); BUN 20 mg/dl (7-24); CHLORIDE 110 mmol/L (98-107); CREATININE 1.07 mg/dL (0.55-1.02); POTASSIUM 3.7 mmol/L (3.5-5.1); SGOT/AST 18 IU/L (3-35); SGPT/ALT 21 U/L (12-78); SODIUM 139 mmol/L (136-145); TOTAL PROTEIN 6.9 gm/dL (6.4-8.2)
== END ==
LOC: LAB 00:13
PROVIDERS: ATTEND Physician Assistant Medical
DX: R00.1 Bradycardia, unspecified (principal); C56.9 Malignant neoplasm of unspecified ovary

== ENCOUNTER → 2021-06-06 | Outpatient (CLI) | payer MEDICARE, OTHER ==
[2021-06-06 13:56] LABS: BILIRUBIN 1+ (Negative); BLOOD Negative (Negative); CLARITY Clear (Clear); COLOR Dark Yellow (Yellow); GLUCOSE Negative (Negative); KETONE Trace (Negative); LEUKO ESTERASE Negative (Negative); NITRITE Negative (Negative); SPECIFIC GRAVITY >= 1.030 (1.001-1.030); UROBILINOGEN 0.2 E.U./dl (0.0-1.0)
[2021-06-06 14:17] LABS: BACTERIA 2+; MUCOUS 2+
[2021-06-06 14:27] LABS: BUN 24 mg/dl (7-24); CHLORIDE 108 mmol/L (98-107); CREATININE 0.92 mg/dL (0.55-1.02); POTASSIUM 4.3 mmol/L (3.5-5.1); SODIUM 140 mmol/L (136-145)
== END | disposition home or self-care (01) ==
LOC: LAB 13:07
PROVIDERS: ATTEND Internal Medicine Nephrology
DX: C56.9 Malignant neoplasm of unspecified ovary (principal)

== ENCOUNTER → 2021-06-07 | Outpatient (CLI) | payer MEDICARE, OTHER | END | disposition home or self-care (01) | LOC: MEDIPORT 00:27 | PROVIDERS: ATTEND Nurse Practitioner Family | DX: Z45.2 Encounter for adjustment and management of vascular access device (principal); C56.2 Malignant neoplasm of left ovary; Z95.828 Presence of other vascular implants and grafts ==

== ENCOUNTER → 2021-07-04 | Outpatient (CLI) | payer MEDICARE, OTHER ==
[~2021-07-04] MED LIST changes: +'TENORMIN50 MG PO; +BIOTIN5 M1 PO; +CARAFATE1 G1 PO; +GAVISCON 80-141 EACH PO; +KLOR-CON 1010 ME1 PO; +NEURONTIN100 MG PO; +OMEPRAZOLE40 MG PO; +PEPCID20 MG PO; +Phenergan25 MG PO; +VITAMIN D325 MCG PO
[2021-07-04 11:05] LABS: BASO % 0.4 % (0.0-1.0); EOS # 0.3 10*3/uL (0.0-0.4); EOS % 4.8 % (1.0-4.0); HEMATOCRIT 38.1 % (37.0-47.0); LYMPH # 1.3 10*3/uL (1.3-4.4); LYMPH % 25.8 % (27.0-41.0); MEAN CELL VOLUME 90.5 fl (81.0-99.0); MEAN CORPUSCULAR HGB 29.2 pg (27.0-31.0); MEAN CORPUSCULAR HGB CONC 32.3 g/dl (33.0-37.0); MEAN PLATELET VOLUME 9.7 fl (9.6-12.3); MONO # 0.6 10*3/uL (0.1-1.0); MONO % 11.2 % (3.0-9.0); NEUT % 57.6 % (47.0-73.0); PLATELET COUNT AUTOMATED 227 10*3/uL (130-400); RED BLOOD COUNT 4.21 10*6/uL (4.10-5.10); RED CELL DISTRI WIDTH 14.8 % (0-14.5); WHITE BLOOD COUNT 5.2 10*3/uL (4.8-10.8)
[2021-07-04 11:20] LABS: CREATININE 1.29 mg/dL (0.55-1.02); POTASSIUM 4.1 mmol/L (3.5-5.1); TOTAL PROTEIN 7.2 gm/dL (6.4-8.2)
== END | disposition home or self-care (01) ==
LOC: LAB 10:36
PROVIDERS: ATTEND Speech-Language Pathologist
DX: C56.9 Malignant neoplasm of unspecified ovary (principal)

== ENCOUNTER → 2021-07-27 | Outpatient (CLI) | payer MEDICARE, OTHER ==
[2021-07-27 09:53] LABS: BASO % 0.8 % (0.0-1.0); HEMATOCRIT 32.7 % (37.0-47.0); LYMPH # 1.3 10*3/uL (1.3-4.4); LYMPH % 32.9 % (27.0-41.0); MEAN CELL VOLUME 90.3 fl (81.0-99.0); MEAN CORPUSCULAR HGB 30.1 pg (27.0-31.0); MEAN CORPUSCULAR HGB CONC 33.3 g/dl (33.0-37.0); MONO # 0.6 10*3/uL (0.1-1.0); MONO % 15.1 % (3.0-9.0); NEUT # 1.9 10*3/uL (2.3-7.9); NEUT % 49.9 % (47.0-73.0); PLATELET COUNT AUTOMATED 158 10*3/uL (130-400); RED BLOOD COUNT 3.62 10*6/uL (4.10-5.10); RED CELL DISTRI WIDTH 15.8 % (0-14.5); WHITE BLOOD COUNT 3.8 10*3/uL (4.8-10.8)
[2021-07-27 10:12] LABS: CREATININE 1.17 mg/dL (0.55-1.02); POTASSIUM 3.5 mmol/L (3.5-5.1); TOTAL PROTEIN 6.7 gm/dL (6.4-8.2)
== END | disposition home or self-care (01) ==
LOC: LAB 09:35
PROVIDERS: ATTEND Speech-Language Pathologist
DX: C56.9 Malignant neoplasm of unspecified ovary (principal)

== ENCOUNTER → 2021-08-04 | Outpatient (CLI) | payer MEDICARE, OTHER ==
[2021-08-04 13:48] LABS: HEMATOCRIT 32.5 % (37.0-47.0); MEAN CORPUSCULAR HGB 30.5 pg (27.0-31.0); MEAN CORPUSCULAR HGB CONC 33.5 g/dl (33.0-37.0); MEAN PLATELET VOLUME 11.1 fl (9.6-12.3); RED BLOOD COUNT 3.57 10*6/uL (4.10-5.10); RED CELL DISTRI WIDTH 15.4 % (0-14.5)
[2021-08-04 13:54] LABS: MANUAL DIFF REFLEX YES; PLATELET COUNT AUTOMATED 53 10*3/uL (130-400)
[2021-08-04 13:56] LABS: WHITE BLOOD COUNT 1.2 10*3/uL (4.8-10.8)
[2021-08-04 14:05] LABS: CREATININE 1.15 mg/dL (0.55-1.02); POTASSIUM 4.6 mmol/L (3.5-5.1)
[2021-08-04 14:26] LABS: ATYPICAL LYMPHS 7 % (0-0); PLATELET SUFFICIENCY LOW (NORMAL); TOTAL CELLS COUNTED 100 #CELLS
[2021-08-04 14:31] LABS: MICROCYTOSIS SLIGHT
[2021-08-04 14:54] LABS: TOXIC GRANULATION SLIGHT
== END | disposition home or self-care (01) ==
LOC: LAB 13:31
PROVIDERS: ATTEND Speech-Language Pathologist
DX: C56.9 Malignant neoplasm of unspecified ovary (principal)

== ENCOUNTER → 2021-09-23 | Outpatient (CLI) | payer MEDICARE, OTHER ==
[2021-09-23 12:45] LABS: HEMATOCRIT 30.6 % (37.0-47.0); MEAN CELL VOLUME 100.7 fl (81.0-99.0); MEAN CORPUSCULAR HGB 33.6 pg (27.0-31.0); MEAN CORPUSCULAR HGB CONC 33.3 g/dl (33.0-37.0); MEAN PLATELET VOLUME 10.7 fl (9.6-12.3); PLATELET COUNT AUTOMATED 31 10*3/uL (130-400); RED BLOOD COUNT 3.04 10*6/uL (4.10-5.10); RED CELL DISTRI WIDTH 15.8 % (0-14.5)
[2021-09-23 12:48] LABS: MANUAL DIFF REFLEX YES
[2021-09-23 13:07] LABS: OVALOCYTES FEW; PLATELET SUFFICIENCY LOW (NORMAL); TOTAL CELLS COUNTED 100 #CELLS
[2021-09-23 13:59] LABS: WHITE BLOOD COUNT 1.8 10*3/uL (4.8-10.8)
== END | disposition home or self-care (01) ==
LOC: LAB 12:27
PROVIDERS: ATTEND Speech-Language Pathologist
DX: C56.9 Malignant neoplasm of unspecified ovary (principal)

== ENCOUNTER → 2021-09-26 | Outpatient (CLI) | payer MEDICARE, OTHER ==
[2021-09-26 10:01] LABS: HEMATOCRIT 27.9 % (37.0-47.0); MEAN CELL VOLUME 104.1 fl (81.0-99.0); MEAN CORPUSCULAR HGB CONC 32.6 g/dl (33.0-37.0); MEAN PLATELET VOLUME 12.8 fl (9.6-12.3); NUCLEATED RED BLOOD CELL 0.2 % (0.0-0.0); PLATELET COUNT AUTOMATED 45 10*3/uL (130-400); RED BLOOD COUNT 2.68 10*6/uL (4.10-5.10); RED CELL DISTRI WIDTH 16.1 % (0-14.5)
[2021-09-26 10:25] LABS: MANUAL DIFF REFLEX YES
[2021-09-26 10:45] LABS: PLATELET SUFFICIENCY LOW (NORMAL); TOTAL CELLS COUNTED 100 #CELLS
== END ==
LOC: LAB 09:48
PROVIDERS: ATTEND Speech-Language Pathologist
DX: C56.9 Malignant neoplasm of unspecified ovary (principal)

== ENCOUNTER → 2021-10-05 | Outpatient (CLI) | payer MEDICARE, OTHER ==
[2021-10-05 12:22] LABS: BASO % 0.3 % (0.0-1.0); EOS % 0.9 % (1.0-4.0); HEMATOCRIT 31.8 % (37.0-47.0); LYMPH # 1.3 10*3/uL (1.3-4.4); LYMPH % 39.4 % (27.0-41.0); MEAN CELL VOLUME 105.6 fl (81.0-99.0); MEAN CORPUSCULAR HGB 33.6 pg (27.0-31.0); MEAN CORPUSCULAR HGB CONC 31.8 g/dl (33.0-37.0); MEAN PLATELET VOLUME 11.2 fl (9.6-12.3); MONO # 0.5 10*3/uL (0.1-1.0); MONO % 13.2 % (3.0-9.0); NEUT # 1.6 10*3/uL (2.3-7.9); NEUT % 45.6 % (47.0-73.0); PLATELET COUNT AUTOMATED 92 10*3/uL (130-400); RED BLOOD COUNT 3.01 10*6/uL (4.10-5.10); RED CELL DISTRI WIDTH 17.7 % (0-14.5); WHITE BLOOD COUNT 3.4 10*3/uL (4.8-10.8)
== END | disposition home or self-care (01) ==
LOC: LAB 11:58
PROVIDERS: ATTEND Speech-Language Pathologist
DX: C56.9 Malignant neoplasm of unspecified ovary (principal)

== ENCOUNTER → 2021-10-12 | Outpatient (CLI) | payer MEDICARE, OTHER ==
[2021-10-12 14:53] LABS: BASO % 0.2 % (0.0-1.0); EOS # 0.1 10*3/uL (0.0-0.4); EOS % 2.3 % (1.0-4.0); HEMATOCRIT 32.4 % (37.0-47.0); LYMPH # 1.4 10*3/uL (1.3-4.4); MEAN CELL VOLUME 106.2 fl (81.0-99.0); MEAN CORPUSCULAR HGB 34.1 pg (27.0-31.0); MEAN CORPUSCULAR HGB CONC 32.1 g/dl (33.0-37.0); MEAN PLATELET VOLUME 10.8 fl (9.6-12.3); MONO # 0.6 10*3/uL (0.1-1.0); NEUT # 2.6 10*3/uL (2.3-7.9); NEUT % 54.3 % (47.0-73.0); PLATELET COUNT AUTOMATED 128 10*3/uL (130-400); RED BLOOD COUNT 3.05 10*6/uL (4.10-5.10); RED CELL DISTRI WIDTH 17.5 % (0-14.5); WHITE BLOOD COUNT 4.7 10*3/uL (4.8-10.8)
[2021-10-12 15:07] LABS: ALKALINE PHOSPHATASE 75 U/L (45-117); BUN 17 mg/dl (7-24); CHLORIDE 108 mmol/L (98-107); CREATININE 1.08 mg/dL (0.55-1.02); SGOT/AST 19 IU/L (3-35); SGPT/ALT 17 U/L (12-78); SODIUM 142 mmol/L (136-145); TOTAL PROTEIN 6.7 gm/dL (6.4-8.2)
== END | disposition home or self-care (01) ==
LOC: LAB 14:26
PROVIDERS: ATTEND Physician Assistant Medical
DX: C56.9 Malignant neoplasm of unspecified ovary (principal)

== ENCOUNTER → 2021-10-19 | Outpatient (CLI) | payer MEDICARE, OTHER ==
[2021-10-19 13:11] LABS: MEAN CELL VOLUME 103.6 fl (81.0-99.0); MEAN CORPUSCULAR HGB 34.3 pg (27.0-31.0); MEAN CORPUSCULAR HGB CONC 33.1 g/dl (33.0-37.0); MEAN PLATELET VOLUME 11.7 fl (9.6-12.3); PLATELET COUNT AUTOMATED 44 10*3/uL (130-400); RED BLOOD COUNT 3.09 10*6/uL (4.10-5.10); RED CELL DISTRI WIDTH 15.4 % (0-14.5); WHITE BLOOD COUNT 2.9 10*3/uL (4.8-10.8)
[2021-10-19 13:13] LABS: MANUAL DIFF REFLEX YES
[2021-10-19 13:25] LABS: CHOLESTEROL 238 mg/dL (<200); LDL CHOLESTEROL 136 mg/dL (9-159); TRIGLYCERIDES 199 mg/dl (<150)
[2021-10-19 13:35] LABS: BASOPHILS 2 % (0-1); TOTAL CELLS COUNTED 100 #CELLS
[2021-10-19 13:36] LABS: PLATELET SUFFICIENCY LOW (NORMAL)
== END ==
LOC: LAB 12:46
PROVIDERS: Family Medicine; ATTEND Speech-Language Pathologist
DX: C56.9 Malignant neoplasm of unspecified ovary (principal); E78.1 Pure hyperglyceridemia

== ENCOUNTER → 2021-10-27 | Outpatient (CLI) | payer MEDICARE, OTHER ==
[2021-10-27 09:53] LABS: HEMATOCRIT 27.4 % (37.0-47.0); MEAN CELL VOLUME 105.4 fl (81.0-99.0); MEAN CORPUSCULAR HGB CONC 33.2 g/dl (33.0-37.0); MEAN PLATELET VOLUME 12.1 fl (9.6-12.3); RED CELL DISTRI WIDTH 14.7 % (0-14.5); WHITE BLOOD COUNT 6.3 10*3/uL (4.8-10.8)
[2021-10-27 10:03] LABS: MANUAL DIFF REFLEX YES
[2021-10-27 11:24] LABS: PLATELET COUNT AUTOMATED 28 10*3/uL (130-400)
[2021-10-27 11:26] LABS: PLATELET SUFFICIENCY LOW (NORMAL); TOTAL CELLS COUNTED 100 #CELLS
== END | disposition home or self-care (01) ==
LOC: LAB 09:31
PROVIDERS: ATTEND Speech-Language Pathologist
DX: C56.9 Malignant neoplasm of unspecified ovary (principal)

== ENCOUNTER → 2021-11-02 | Outpatient (CLI) | payer MEDICARE, OTHER ==
[2021-11-02 14:34] LABS: HEMATOCRIT 28.7 % (37.0-47.0); MEAN CELL VOLUME 105.5 fl (81.0-99.0); MEAN CORPUSCULAR HGB 34.6 pg (27.0-31.0); MEAN CORPUSCULAR HGB CONC 32.8 g/dl (33.0-37.0); MEAN PLATELET VOLUME 11.3 fl (9.6-12.3); PLATELET COUNT AUTOMATED 49 10*3/uL (130-400); RED BLOOD COUNT 2.72 10*6/uL (4.10-5.10); RED CELL DISTRI WIDTH 16.3 % (0-14.5); WHITE BLOOD COUNT 5.5 10*3/uL (4.8-10.8)
[2021-11-02 14:35] LABS: MANUAL DIFF REFLEX YES
[2021-11-02 14:50] LABS: CREATININE 1.24 mg/dL (0.55-1.02); POTASSIUM 4.2 mmol/L (3.5-5.1); TOTAL PROTEIN 6.8 gm/dL (6.4-8.2)
[2021-11-02 14:54] LABS: PLATELET SUFFICIENCY LOW (NORMAL); POLYCHROMASIA SLIGHT; TOTAL CELLS COUNTED 100 #CELLS
[2021-11-02 14:55] LABS: OVALOCYTES FEW
== END | disposition home or self-care (01) ==
LOC: LAB 13:58
PROVIDERS: ATTEND Speech-Language Pathologist
DX: C56.9 Malignant neoplasm of unspecified ovary (principal)

== ENCOUNTER → 2021-11-09 | Outpatient (CLI) | payer MEDICARE, OTHER ==
[2021-11-09 14:44] LABS: HEMATOCRIT 31.3 % (37.0-47.0); MEAN CELL VOLUME 109.4 fl (81.0-99.0); MEAN CORPUSCULAR HGB 35.3 pg (27.0-31.0); MEAN CORPUSCULAR HGB CONC 32.3 g/dl (33.0-37.0); MEAN PLATELET VOLUME 11.4 fl (9.6-12.3); PLATELET COUNT AUTOMATED 101 10*3/uL (130-400); RED BLOOD COUNT 2.86 10*6/uL (4.10-5.10); RED CELL DISTRI WIDTH 17.2 % (0-14.5); WHITE BLOOD COUNT 4.3 10*3/uL (4.8-10.8)
[2021-11-09 14:48] LABS: MANUAL DIFF REFLEX YES
[2021-11-09 15:05] LABS: CREATININE 1.26 mg/dL (0.55-1.02); POTASSIUM 3.9 mmol/L (3.5-5.1); TOTAL PROTEIN 7.1 gm/dL (6.4-8.2)
[2021-11-09 15:23] LABS: BASOPHILS 1 % (0-1); TOTAL CELLS COUNTED 100 #CELLS
[2021-11-09 15:24] LABS: PLATELET SUFFICIENCY LOW (NORMAL)
[2021-11-09 15:25] LABS: STOMATOCYTE FEW
== END | disposition home or self-care (01) ==
LOC: LAB 13:52
PROVIDERS: ATTEND Speech-Language Pathologist
DX: C56.9 Malignant neoplasm of unspecified ovary (principal)

== ENCOUNTER → 2021-11-22 | Outpatient (CLI) | payer MEDICARE, OTHER ==
[2021-11-22 12:34] LABS: HEMATOCRIT 25.6 % (37.0-47.0); MEAN CELL VOLUME 108.9 fl (81.0-99.0); MEAN CORPUSCULAR HGB 35.3 pg (27.0-31.0); MEAN CORPUSCULAR HGB CONC 32.4 g/dl (33.0-37.0); MEAN PLATELET VOLUME 13.6 fl (9.6-12.3); NUCLEATED RED BLOOD CELL 0.3 % (0.0-0.0); RED BLOOD COUNT 2.35 10*6/uL (4.10-5.10); RED CELL DISTRI WIDTH 15.2 % (0-14.5); WHITE BLOOD COUNT 7.8 10*3/uL (4.8-10.8)
[2021-11-22 13:02] LABS: MANUAL DIFF REFLEX YES
[2021-11-22 13:07] LABS: TOTAL CELLS COUNTED 100 #CELLS; TOXIC GRANULATION MODERATE
[2021-11-22 13:08] LABS: POLYCHROMASIA SLIGHT
[2021-11-22 13:10] LABS: PLATELET SUFFICIENCY LOW (NORMAL)
[2021-11-22 13:30] LABS: PLATELET COUNT AUTOMATED 29 10*3/uL (130-400)
== END | disposition home or self-care (01) ==
LOC: LAB 12:04
PROVIDERS: ATTEND Speech-Language Pathologist
DX: C56.9 Malignant neoplasm of unspecified ovary (principal)

== ENCOUNTER → 2021-11-30 | Outpatient (CLI) | payer MEDICARE, OTHER ==
[2021-11-30 12:29] LABS: BILIRUBIN 1+ (Negative); BLOOD Negative (Negative); CLARITY Cloudy (Clear); COLOR Dark Yellow (Yellow); GLUCOSE Negative (Negative); KETONE Trace (Negative); LEUKO ESTERASE 1+ (Negative); MEAN CELL VOLUME 109.8 fl (81.0-99.0); MEAN CORPUSCULAR HGB 35.4 pg (27.0-31.0); MEAN CORPUSCULAR HGB CONC 32.2 g/dl (33.0-37.0); NITRITE Negative (Negative); PH 5.5 (4.5-8.0); PLATELET COUNT AUTOMATED 38 10*3/uL (130-400); RED BLOOD COUNT 2.46 10*6/uL (4.10-5.10); RED CELL DISTRI WIDTH 17.1 % (0-14.5); WHITE BLOOD COUNT 3.7 10*3/uL (4.8-10.8)
[2021-11-30 12:37] LABS: MANUAL DIFF REFLEX YES
[2021-11-30 12:43] LABS: CREATININE 1.3 mg/dL (0.55-1.02)
[2021-11-30 12:46] LABS: CREATININE 1.36 mg/dL (0.55-1.02); POTASSIUM 4.4 mmol/L (3.5-5.1)
[2021-11-30 13:20] LABS: TOTAL CELLS COUNTED 100 #CELLS
[2021-11-30 13:21] LABS: PLATELET SUFFICIENCY LOW (NORMAL)
[2021-11-30 13:44] LABS: BACTERIA 3+; EPITHELIAL CELLS 16-20; MUCOUS 2+; WBC 16-20 wbc/hpf (0-5)
== END | disposition home or self-care (01) ==
LOC: LAB 11:32
PROVIDERS: Internal Medicine Nephrology; ATTEND Speech-Language Pathologist
DX: C56.9 Malignant neoplasm of unspecified ovary (principal); R80.9 Proteinuria, unspecified

== ENCOUNTER → 2021-12-07 | Outpatient (CLI) | payer MEDICARE, OTHER ==
[2021-12-07 09:47] LABS: HEMATOCRIT 28.5 % (37.0-47.0); MANUAL DIFF REFLEX YES; MEAN CELL VOLUME 112.2 fl (81.0-99.0); MEAN CORPUSCULAR HGB 35.8 pg (27.0-31.0); MEAN CORPUSCULAR HGB CONC 31.9 g/dl (33.0-37.0); MEAN PLATELET VOLUME 12.7 fl (9.6-12.3); PLATELET COUNT AUTOMATED 50 10*3/uL (130-400); RED BLOOD COUNT 2.54 10*6/uL (4.10-5.10); RED CELL DISTRI WIDTH 17.8 % (0-14.5); WHITE BLOOD COUNT 4.3 10*3/uL (4.8-10.8)
[2021-12-07 10:06] LABS: ATYPICAL LYMPHS 1 % (0-0); BASOPHILS 1 % (0-1); OVALOCYTES FEW; PLATELET SUFFICIENCY LOW (NORMAL); POLYCHROMASIA SLIGHT; SCHISTOCYTES FEW; TOTAL CELLS COUNTED 100 #CELLS
== END | disposition home or self-care (01) ==
LOC: LAB 09:13
PROVIDERS: ATTEND Speech-Language Pathologist
DX: C56.9 Malignant neoplasm of unspecified ovary (principal)

== ENCOUNTER → 2021-12-14 | Outpatient (CLI) | payer MEDICARE, OTHER ==
[2021-12-14 10:31] LABS: HEMATOCRIT 30.5 % (37.0-47.0); MEAN CELL VOLUME 111.7 fl (81.0-99.0); MEAN CORPUSCULAR HGB 35.5 pg (27.0-31.0); MEAN CORPUSCULAR HGB CONC 31.8 g/dl (33.0-37.0); MEAN PLATELET VOLUME 10.6 fl (9.6-12.3); PLATELET COUNT AUTOMATED 66 10*3/uL (130-400); RED BLOOD COUNT 2.73 10*6/uL (4.10-5.10); RED CELL DISTRI WIDTH 17.5 % (0-14.5); WHITE BLOOD COUNT 3.4 10*3/uL (4.8-10.8)
[2021-12-14 10:32] LABS: MANUAL DIFF REFLEX YES
[2021-12-14 10:46] LABS: ALKALINE PHOSPHATASE 72 U/L (45-117); BUN 16 mg/dl (7-24); CHLORIDE 109 mmol/L (98-107); CREATININE 1.11 mg/dL (0.55-1.02); IRON 56 ug/dL (50-170); LIPASE 116 U/L (73-393); POTASSIUM 4.2 mmol/L (3.5-5.1); SGOT/AST 14 IU/L (3-35); SGPT/ALT 18 U/L (12-78); SODIUM 141 mmol/L (136-145); TOTAL PROTEIN 7.1 gm/dL (6.4-8.2)
[2021-12-14 10:54] LABS: ATYPICAL LYMPHS 1 % (0-0); TOTAL CELLS COUNTED 100 #CELLS
[2021-12-14 10:55] LABS: PLATELET SUFFICIENCY LOW (NORMAL); POLYCHROMASIA SLIGHT; TOXIC GRANULATION SLIGHT
== END | disposition home or self-care (01) ==
LOC: US 00:44 → LAB 00:44 → US 09:30
PROVIDERS: Family Medicine; Speech-Language Pathologist; ATTEND Physician Assistant
DX: K76.0 Fatty (change of) liver, not elsewhere classified (principal); D64.9 Anemia, unspecified

== ENCOUNTER → 2021-12-21 | Outpatient (CLI) | payer MEDICARE, OTHER ==
[2021-12-21 11:24] LABS: HEMATOCRIT 31.5 % (37.0-47.0); MEAN CELL VOLUME 110.1 fl (81.0-99.0); MEAN CORPUSCULAR HGB 35.7 pg (27.0-31.0); MEAN CORPUSCULAR HGB CONC 32.4 g/dl (33.0-37.0); PLATELET COUNT AUTOMATED 93 10*3/uL (130-400); RED BLOOD COUNT 2.86 10*6/uL (4.10-5.10); RED CELL DISTRI WIDTH 16.7 % (0-14.5); WHITE BLOOD COUNT 4.5 10*3/uL (4.8-10.8)
[2021-12-21 11:25] LABS: MANUAL DIFF REFLEX YES
[2021-12-21 11:40] LABS: CREATININE 1.32 mg/dL (0.55-1.02); POTASSIUM 4.4 mmol/L (3.5-5.1); TOTAL PROTEIN 7.2 gm/dL (6.4-8.2)
[2021-12-21 11:44] LABS: OVALOCYTES FEW; PLATELET SUFFICIENCY LOW (NORMAL); POLYCHROMASIA SLIGHT; TOTAL CELLS COUNTED 100 #CELLS
== END ==
LOC: LAB 11:05
PROVIDERS: ATTEND Speech-Language Pathologist
DX: C56.9 Malignant neoplasm of unspecified ovary (principal)

== ENCOUNTER → 2021-12-28 | Outpatient (CLI) | payer MEDICARE, OTHER ==
[2021-12-28 10:44] LABS: HEMATOCRIT 31.9 % (37.0-47.0); MEAN CELL VOLUME 112.3 fl (81.0-99.0); MEAN CORPUSCULAR HGB 36.3 pg (27.0-31.0); MEAN CORPUSCULAR HGB CONC 32.3 g/dl (33.0-37.0); PLATELET COUNT AUTOMATED 108 10*3/uL (130-400); RED BLOOD COUNT 2.84 10*6/uL (4.10-5.10); RED CELL DISTRI WIDTH 15.9 % (0-14.5); WHITE BLOOD COUNT 4.5 10*3/uL (4.8-10.8)
[2021-12-28 10:45] LABS: MANUAL DIFF REFLEX YES
[2021-12-28 11:26] LABS: BASOPHILS 1 % (0-1); OVALOCYTES FEW; PLATELET SUFFICIENCY LOW (NORMAL); POLYCHROMASIA SLIGHT; TOTAL CELLS COUNTED 100 #CELLS
[2021-12-28 11:27] LABS: SCHISTOCYTES FEW
== END | disposition home or self-care (01) ==
LOC: LAB 10:01
PROVIDERS: ATTEND Speech-Language Pathologist
DX: C56.9 Malignant neoplasm of unspecified ovary (principal)

== ENCOUNTER → 2022-01-04 | Outpatient (CLI) | payer MEDICARE, OTHER ==
[2022-01-04 13:39] LABS: MEAN CORPUSCULAR HGB 35.7 pg (27.0-31.0); MEAN CORPUSCULAR HGB CONC 32.4 g/dl (33.0-37.0); MEAN PLATELET VOLUME 10.1 fl (9.6-12.3); PLATELET COUNT AUTOMATED 114 10*3/uL (130-400); RED CELL DISTRI WIDTH 14.8 % (0-14.5); WHITE BLOOD COUNT 4.7 10*3/uL (4.8-10.8)
[2022-01-04 13:48] LABS: MANUAL DIFF REFLEX YES
[2022-01-04 14:05] LABS: BASOPHILS 1 % (0-1); OVALOCYTES FEW; PLATELET SUFFICIENCY LOW (NORMAL); POLYCHROMASIA SLIGHT; TOTAL CELLS COUNTED 100 #CELLS
== END | disposition home or self-care (01) ==
LOC: LAB 13:25
PROVIDERS: ATTEND Speech-Language Pathologist
DX: C56.9 Malignant neoplasm of unspecified ovary (principal)

== ENCOUNTER → 2022-01-12 | Outpatient (CLI) | payer MEDICARE, OTHER ==
[2022-01-12 10:07] LABS: BASO % 0.2 % (0.0-1.0); EOS # 0.5 10*3/uL (0.0-0.4); EOS % 10.6 % (1.0-4.0); HEMATOCRIT 34.2 % (37.0-47.0); LYMPH # 1.4 10*3/uL (1.3-4.4); LYMPH % 28.7 % (27.0-41.0); MEAN CELL VOLUME 107.9 fl (81.0-99.0); MEAN CORPUSCULAR HGB 35.3 pg (27.0-31.0); MEAN CORPUSCULAR HGB CONC 32.7 g/dl (33.0-37.0); MEAN PLATELET VOLUME 9.8 fl (9.6-12.3); MONO # 0.5 10*3/uL (0.1-1.0); MONO % 9.6 % (3.0-9.0); NEUT # 2.5 10*3/uL (2.3-7.9); NEUT % 50.9 % (47.0-73.0); PLATELET COUNT AUTOMATED 109 10*3/uL (130-400); RED BLOOD COUNT 3.17 10*6/uL (4.10-5.10); RED CELL DISTRI WIDTH 14.2 % (0-14.5); WHITE BLOOD COUNT 4.9 10*3/uL (4.8-10.8)
[2022-01-12 10:22] LABS: CREATININE 1.21 mg/dL (0.55-1.02); TOTAL PROTEIN 6.9 gm/dL (6.4-8.2)
== END | disposition home or self-care (01) ==
LOC: LAB 09:50
PROVIDERS: ATTEND Speech-Language Pathologist
DX: C56.9 Malignant neoplasm of unspecified ovary (principal)

== ENCOUNTER → 2022-02-08 | Outpatient (CLI) | payer MEDICARE, OTHER ==
[2022-02-08 10:40] LABS: HEMATOCRIT 32.9 % (37.0-47.0); MANUAL DIFF REFLEX YES; MEAN CELL VOLUME 109.3 fl (81.0-99.0); MEAN CORPUSCULAR HGB 34.9 pg (27.0-31.0); MEAN CORPUSCULAR HGB CONC 31.9 g/dl (33.0-37.0); MEAN PLATELET VOLUME 10.5 fl (9.6-12.3); PLATELET COUNT AUTOMATED 108 10*3/uL (130-400); RED BLOOD COUNT 3.01 10*6/uL (4.10-5.10); RED CELL DISTRI WIDTH 13.3 % (0-14.5); WHITE BLOOD COUNT 4.7 10*3/uL (4.8-10.8)
[2022-02-08 11:01] LABS: TOTAL CELLS COUNTED 100 #CELLS
[2022-02-08 11:02] LABS: OVALOCYTES FEW; PLATELET SUFFICIENCY LOW (NORMAL); POLYCHROMASIA SLIGHT
== END | disposition home or self-care (01) ==
LOC: LAB 10:08
PROVIDERS: ATTEND Speech-Language Pathologist
DX: C56.9 Malignant neoplasm of unspecified ovary (principal)

== ENCOUNTER → 2022-03-17 | Outpatient (CLI) | payer MEDICARE, OTHER ==
[2022-03-17 14:52] LABS: BASO % 0.4 % (0.0-1.0); EOS # 0.2 10*3/uL (0.0-0.4); EOS % 3.1 % (1.0-4.0); HEMATOCRIT 35.3 % (37.0-47.0); LYMPH # 1.7 10*3/uL (1.3-4.4); LYMPH % 34.2 % (27.0-41.0); MEAN CELL VOLUME 103.8 fl (81.0-99.0); MEAN CORPUSCULAR HGB 33.8 pg (27.0-31.0); MEAN CORPUSCULAR HGB CONC 32.6 g/dl (33.0-37.0); MEAN PLATELET VOLUME 10.7 fl (9.6-12.3); MONO # 0.5 10*3/uL (0.1-1.0); MONO % 10.4 % (3.0-9.0); NEUT # 2.5 10*3/uL (2.3-7.9); NEUT % 51.7 % (47.0-73.0); PLATELET COUNT AUTOMATED 84 10*3/uL (130-400); RED CELL DISTRI WIDTH 13.7 % (0-14.5); WHITE BLOOD COUNT 4.8 10*3/uL (4.8-10.8)
== END | disposition home or self-care (01) ==
LOC: LAB 14:28
PROVIDERS: ATTEND Speech-Language Pathologist
DX: C56.9 Malignant neoplasm of unspecified ovary (principal)

== ENCOUNTER → 2022-03-22 | Outpatient (CLI) | payer MEDICARE, OTHER ==
[2022-03-22 11:03] LABS: BASO % 0.7 % (0.0-1.0); EOS # 0.1 10*3/uL (0.0-0.4); EOS % 3.2 % (1.0-4.0); HEMATOCRIT 35.7 % (37.0-47.0); LYMPH # 1.5 10*3/uL (1.3-4.4); LYMPH % 33.9 % (27.0-41.0); MEAN CELL VOLUME 104.1 fl (81.0-99.0); MEAN CORPUSCULAR HGB 33.5 pg (27.0-31.0); MEAN CORPUSCULAR HGB CONC 32.2 g/dl (33.0-37.0); MEAN PLATELET VOLUME 10.4 fl (9.6-12.3); MONO # 0.5 10*3/uL (0.1-1.0); MONO % 10.7 % (3.0-9.0); NEUT # 2.3 10*3/uL (2.3-7.9); NEUT % 51.3 % (47.0-73.0); PLATELET COUNT AUTOMATED 88 10*3/uL (130-400); RED BLOOD COUNT 3.43 10*6/uL (4.10-5.10); RED CELL DISTRI WIDTH 14.1 % (0-14.5); WHITE BLOOD COUNT 4.4 10*3/uL (4.8-10.8)
[2022-03-22 11:20] LABS: POTASSIUM 4.4 mmol/L (3.4-5.1); TOTAL PROTEIN 6.7 gm/dL (6.0-8.0)
== END | disposition home or self-care (01) ==
LOC: LAB 10:40
PROVIDERS: ATTEND Speech-Language Pathologist
DX: C56.9 Malignant neoplasm of unspecified ovary (principal)

== ENCOUNTER → 2022-03-29 | Outpatient (CLI) | payer MEDICARE, OTHER ==
[2022-03-29 12:25] LABS: BASO % 0.3 % (0.0-1.0); EOS # 0.1 10*3/uL (0.0-0.4); EOS % 3.2 % (1.0-4.0); HEMATOCRIT 35.3 % (37.0-47.0); LYMPH # 1.6 10*3/uL (1.3-4.4); LYMPH % 42.6 % (27.0-41.0); MEAN CELL VOLUME 104.1 fl (81.0-99.0); MEAN CORPUSCULAR HGB 33.9 pg (27.0-31.0); MEAN CORPUSCULAR HGB CONC 32.6 g/dl (33.0-37.0); MEAN PLATELET VOLUME 10.4 fl (9.6-12.3); MONO # 0.4 10*3/uL (0.1-1.0); NEUT # 1.6 10*3/uL (2.3-7.9); NEUT % 43.6 % (47.0-73.0); PLATELET COUNT AUTOMATED 85 10*3/uL (130-400); RED BLOOD COUNT 3.39 10*6/uL (4.10-5.10); RED CELL DISTRI WIDTH 14.6 % (0-14.5); WHITE BLOOD COUNT 3.7 10*3/uL (4.8-10.8)
== END | disposition home or self-care (01) ==
LOC: LAB 12:14
PROVIDERS: ATTEND Speech-Language Pathologist
DX: C56.9 Malignant neoplasm of unspecified ovary (principal)

== ENCOUNTER → 2022-04-13 | Outpatient (CLI) | payer MEDICARE, OTHER ==
[2022-04-13 16:00] LABS: BASO % 0.6 % (0.0-1.0); EOS # 0.1 10*3/uL (0.0-0.4); EOS % 3.8 % (1.0-4.0); HEMATOCRIT 35.1 % (37.0-47.0); LYMPH # 1.2 10*3/uL (1.3-4.4); LYMPH % 35.2 % (27.0-41.0); MEAN CELL VOLUME 103.2 fl (81.0-99.0); MEAN CORPUSCULAR HGB 34.4 pg (27.0-31.0); MEAN CORPUSCULAR HGB CONC 33.3 g/dl (33.0-37.0); MEAN PLATELET VOLUME 10.4 fl (9.6-12.3); MONO # 0.4 10*3/uL (0.1-1.0); MONO % 10.8 % (3.0-9.0); NEUT # 1.7 10*3/uL (2.3-7.9); NEUT % 49.3 % (47.0-73.0); PLATELET COUNT AUTOMATED 88 10*3/uL (130-400); RED CELL DISTRI WIDTH 15.3 % (0-14.5); WHITE BLOOD COUNT 3.4 10*3/uL (4.8-10.8)
[2022-04-13 16:16] LABS: TOTAL PROTEIN 6.6 gm/dL (6.0-8.0)
[2022-04-13 16:42] LABS: VITAMIN D, 25-HYDROXY 42.4 ng/mL (30-100)
== END | disposition home or self-care (01) ==
LOC: LAB 15:40
PROVIDERS: Family Medicine; ATTEND Physician Assistant Medical
DX: C56.9 Malignant neoplasm of unspecified ovary (principal); E53.8 Deficiency of other specified B group vitamins; E55.9 Vitamin D deficiency, unspecified; E01.0 Iodine-deficiency related diffuse (endemic) goiter; E78.1 Pure hyperglyceridemia

== ENCOUNTER → 2022-05-10 | Outpatient (CLI) | payer MEDICARE, OTHER ==
[2022-05-10 12:02] LABS: HEMATOCRIT 33.7 % (37.0-47.0); MEAN CELL VOLUME 108.4 fl (81.0-99.0); MEAN CORPUSCULAR HGB CONC 32.3 g/dl (33.0-37.0); MEAN PLATELET VOLUME 10.5 fl (9.6-12.3); PLATELET COUNT AUTOMATED 95 10*3/uL (130-400); RED BLOOD COUNT 3.11 10*6/uL (4.10-5.10); RED CELL DISTRI WIDTH 15.9 % (0-14.5); WHITE BLOOD COUNT 3.5 10*3/uL (4.8-10.8)
[2022-05-10 12:09] LABS: MANUAL DIFF REFLEX YES
[2022-05-10 12:25] LABS: PLATELET SUFFICIENCY LOW (NORMAL); TOTAL CELLS COUNTED 100 #CELLS
[2022-05-10 12:28] LABS: TOTAL PROTEIN 6.6 gm/dL (6.0-8.0)
== END | disposition home or self-care (01) ==
LOC: LAB 11:18
PROVIDERS: ATTEND Speech-Language Pathologist
DX: Z51.11 Encounter for antineoplastic chemotherapy (principal); Z51.12 Encounter for antineoplastic immunotherapy; C56.9 Malignant neoplasm of unspecified ovary

== ENCOUNTER → 2022-05-24 | Outpatient (CLI) | payer MEDICARE, OTHER ==
[2022-05-24 09:21] LABS: HEMATOCRIT 34.2 % (37.0-47.0); MEAN CELL VOLUME 108.9 fl (81.0-99.0); MEAN CORPUSCULAR HGB 35.4 pg (27.0-31.0); MEAN CORPUSCULAR HGB CONC 32.5 g/dl (33.0-37.0); MEAN PLATELET VOLUME 9.7 fl (9.6-12.3); PLATELET COUNT AUTOMATED 105 10*3/uL (130-400); RED BLOOD COUNT 3.14 10*6/uL (4.10-5.10); WHITE BLOOD COUNT 5.3 10*3/uL (4.8-10.8)
[2022-05-24 09:31] LABS: MANUAL DIFF REFLEX YES
[2022-05-24 09:45] LABS: PLATELET SUFFICIENCY NORMAL (NORMAL); POLYCHROMASIA SLIGHT; TOTAL CELLS COUNTED 100 #CELLS
== END | disposition home or self-care (01) ==
LOC: LAB 09:07
PROVIDERS: ATTEND Speech-Language Pathologist
DX: C56.9 Malignant neoplasm of unspecified ovary (principal); Z51.11 Encounter for antineoplastic chemotherapy; Z51.12 Encounter for antineoplastic immunotherapy

== ENCOUNTER 2022-05-28 20:17 | Emergency (ER) | payer MEDICARE, OTHER ==
[~2022-05-28] VITALS: Wt 79.4 kg
== END 2022-05-28 23:27 | disposition home or self-care (01) ==
LOC: ED 20:17
DX: S50.02XA Contusion of left elbow, initial encounter (principal); S50.01XA Contusion of right elbow, initial encounter; S80.02XA Contusion of left knee, initial encounter; S80.01XA Contusion of right knee, initial encounter; S90.02XA Contusion of left ankle, initial encounter; I50.9 Heart failure, unspecified; Z88.8 Allergy status to other drugs, medicaments and biological substances; Z88.2 Allergy status to sulfonamides; Z88.1 Allergy status to other antibiotic agents; Z90.89 Acquired absence of other organs; Z90.710 Acquired absence of both cervix and uterus; Z90.49 Acquired absence of other specified parts of digestive tract; W10.8XXA Fall (on) (from) other stairs and steps, initial encounter; Y93.89 Activity, other specified; Y92.89 Other specified places as the place of occurrence of the external cause; Y99.8 Other external cause status

== ENCOUNTER → 2022-05-31 | Outpatient (CLI) | payer MEDICARE, OTHER ==
[2022-05-31 12:46] LABS: BASO % 0.4 % (0.0-1.0); EOS # 0.4 10*3/uL (0.0-0.4); HEMATOCRIT 34.2 % (37.0-47.0); LYMPH # 1.4 10*3/uL (1.3-4.4); LYMPH % 28.6 % (27.0-41.0); MEAN CELL VOLUME 106.5 fl (81.0-99.0); MEAN CORPUSCULAR HGB 35.5 pg (27.0-31.0); MEAN CORPUSCULAR HGB CONC 33.3 g/dl (33.0-37.0); MEAN PLATELET VOLUME 9.5 fl (9.6-12.3); MONO # 0.5 10*3/uL (0.1-1.0); MONO % 9.5 % (3.0-9.0); NEUT # 2.5 10*3/uL (2.3-7.9); NEUT % 53.3 % (47.0-73.0); PLATELET COUNT AUTOMATED 119 10*3/uL (130-400); RED BLOOD COUNT 3.21 10*6/uL (4.10-5.10); RED CELL DISTRI WIDTH 14.3 % (0-14.5); WHITE BLOOD COUNT 4.8 10*3/uL (4.8-10.8)
[2022-05-31 13:10] LABS: POTASSIUM 4.6 mmol/L (3.4-5.1); TOTAL PROTEIN 6.5 gm/dL (6.0-8.0)
== END | disposition home or self-care (01) ==
LOC: LAB 12:04
PROVIDERS: ATTEND Physician Assistant Medical
DX: Z51.11 Encounter for antineoplastic chemotherapy (principal); Z51.12 Encounter for antineoplastic immunotherapy; C56.9 Malignant neoplasm of unspecified ovary

== ENCOUNTER → 2022-06-02 | Outpatient (CLI) | payer MEDICARE, OTHER ==
[2022-06-02 15:13] LABS: BILIRUBIN 1+ (Negative); BLOOD Negative (Negative); CLARITY Clear (Clear); COLOR Dark Yellow (Yellow); GLUCOSE Negative (Negative); KETONE Trace (Negative); LEUKO ESTERASE Negative (Negative); NITRITE Negative (Negative); SPECIFIC GRAVITY >= 1.030 (1.001-1.030); UROBILINOGEN 0.2 E.U./dl (0.0-1.0)
[2022-06-02 15:24] LABS: BACTERIA 1+; MUCOUS 1+; RBC 0-2 rbc/hpf (0-2)
[2022-06-02 15:32] LABS: POTASSIUM 4.5 mmol/L (3.4-5.1)
== END | disposition home or self-care (01) ==
LOC: LAB 14:42
PROVIDERS: ATTEND Internal Medicine Nephrology
DX: R80.9 Proteinuria, unspecified (principal)

== ENCOUNTER → 2022-06-05 | Outpatient (CLI) | payer MEDICARE, OTHER | END | disposition home or self-care (01) | LOC: LAB 09:41 | PROVIDERS: ATTEND Internal Medicine Nephrology | DX: R80.9 Proteinuria, unspecified (principal) ==

== ENCOUNTER → 2022-06-21 | Outpatient (CLI) | payer MEDICARE ==
[2022-06-21 13:42] LABS: BASO % 0.4 % (0.0-1.0); EOS # 0.3 10*3/uL (0.0-0.4); EOS % 5.6 % (1.0-4.0); HEMATOCRIT 35.6 % (37.0-47.0); LYMPH # 1.5 10*3/uL (1.3-4.4); MEAN CELL VOLUME 106.6 fl (81.0-99.0); MEAN CORPUSCULAR HGB 35.3 pg (27.0-31.0); MEAN CORPUSCULAR HGB CONC 33.1 g/dl (33.0-37.0); MEAN PLATELET VOLUME 10.5 fl (9.6-12.3); MONO # 0.5 10*3/uL (0.1-1.0); MONO % 10.7 % (3.0-9.0); NEUT # 2.2 10*3/uL (2.3-7.9); NEUT % 50.1 % (47.0-73.0); PLATELET COUNT AUTOMATED 128 10*3/uL (130-400); RED BLOOD COUNT 3.34 10*6/uL (4.10-5.10); RED CELL DISTRI WIDTH 13.3 % (0-14.5); WHITE BLOOD COUNT 4.5 10*3/uL (4.8-10.8)
[2022-06-21 14:02] LABS: POTASSIUM 4.7 mmol/L (3.4-5.1); TOTAL PROTEIN 6.6 gm/dL (6.0-8.0)
== END | disposition home or self-care (01) ==
LOC: LAB 12:48
PROVIDERS: ATTEND Physician Assistant Medical
DX: Z51.11 Encounter for antineoplastic chemotherapy (principal); Z51.12 Encounter for antineoplastic immunotherapy; C56.9 Malignant neoplasm of unspecified ovary

== ENCOUNTER 2022-06-23 16:56 | Emergency (ER) | payer MEDICARE ==
[~2022-06-23] VITALS: Ht 142.2 cm; Wt 82.1 kg
[2022-06-23 17:32] LABS: BASO % 0.3 % (0.0-1.0); EOS # 0.2 10*3/uL (0.0-0.4); EOS % 3.8 % (1.0-4.0); HEMATOCRIT 35.3 % (37.0-47.0); LYMPH # 2.3 10*3/uL (1.3-4.4); LYMPH % 38.7 % (27.0-41.0); MEAN CELL VOLUME 107.3 fl (81.0-99.0); MEAN CORPUSCULAR HGB 36.2 pg (27.0-31.0); MEAN CORPUSCULAR HGB CONC 33.7 g/dl (33.0-37.0); MEAN PLATELET VOLUME 9.7 fl (9.6-12.3); MONO # 0.6 10*3/uL (0.1-1.0); MONO % 9.3 % (3.0-9.0); NEUT # 2.9 10*3/uL (2.3-7.9); NEUT % 47.7 % (47.0-73.0); PLATELET COUNT AUTOMATED 125 10*3/uL (130-400); RED BLOOD COUNT 3.29 10*6/uL (4.10-5.10); RED CELL DISTRI WIDTH 13.4 % (0-14.5)
[2022-06-23 17:47] LABS: ALKALINE PHOSPHATASE 84 U/L (46-116); BUN 16 mg/dl (9-23); CHLORIDE 108 mmol/L (98-107); LIPASE 46 U/L (12-53); POTASSIUM 4.3 mmol/L (3.4-5.1); SGPT/ALT 10 U/L (10-49); TOTAL PROTEIN 6.5 gm/dL (6.0-8.0)
== END 2022-06-24 00:27 | disposition home or self-care (01) ==
LOC: ED 16:56
PROVIDERS: Emergency Medicine
DX: I11.0 Hypertensive heart disease with heart failure (principal); I50.9 Heart failure, unspecified; Z88.2 Allergy status to sulfonamides; Z88.8 Allergy status to other drugs, medicaments and biological substances; Z79.899 Other long term (current) drug therapy; Z90.49 Acquired absence of other specified parts of digestive tract; Z90.89 Acquired absence of other organs; Z90.710 Acquired absence of both cervix and uterus; Z98.890 Other specified postprocedural states

== ENCOUNTER → 2022-06-28 | Outpatient (CLI) | payer MEDICARE ==
[2022-06-28 14:13] LABS: BASO % 0.5 % (0.0-1.0); EOS # 0.3 10*3/uL (0.0-0.4); HEMATOCRIT 34.7 % (37.0-47.0); LYMPH # 1.9 10*3/uL (1.3-4.4); MEAN CELL VOLUME 107.1 fl (81.0-99.0); MEAN CORPUSCULAR HGB 34.9 pg (27.0-31.0); MEAN CORPUSCULAR HGB CONC 32.6 g/dl (33.0-37.0); MEAN PLATELET VOLUME 9.2 fl (9.6-12.3); MONO # 0.6 10*3/uL (0.1-1.0); MONO % 9.4 % (3.0-9.0); NEUT # 3.2 10*3/uL (2.3-7.9); NEUT % 52.9 % (47.0-73.0); PLATELET COUNT AUTOMATED 120 10*3/uL (130-400); RED BLOOD COUNT 3.24 10*6/uL (4.10-5.10); RED CELL DISTRI WIDTH 13.7 % (0-14.5)
[2022-06-28 14:32] LABS: POTASSIUM 4.4 mmol/L (3.4-5.1); TOTAL PROTEIN 6.5 gm/dL (6.0-8.0)
== END | disposition home or self-care (01) ==
LOC: LAB 13:42
PROVIDERS: ATTEND Speech-Language Pathologist
DX: C56.9 Malignant neoplasm of unspecified ovary (principal)

== ENCOUNTER → 2022-07-20 | Outpatient (CLI) | payer MEDICARE, OTHER ==
[2022-07-20 16:56] LABS: BASO % 0.5 % (0.0-1.0); EOS # 0.4 10*3/uL (0.0-0.4); EOS % 7.2 % (1.0-4.0); HEMATOCRIT 34.5 % (37.0-47.0); LYMPH % 34.8 % (27.0-41.0); MEAN CELL VOLUME 107.1 fl (81.0-99.0); MEAN CORPUSCULAR HGB 35.1 pg (27.0-31.0); MEAN CORPUSCULAR HGB CONC 32.8 g/dl (33.0-37.0); MEAN PLATELET VOLUME 10.4 fl (9.6-12.3); MONO # 0.5 10*3/uL (0.1-1.0); MONO % 8.6 % (3.0-9.0); NEUT # 2.8 10*3/uL (2.3-7.9); NEUT % 48.5 % (47.0-73.0); PLATELET COUNT AUTOMATED 130 10*3/uL (130-400); RED BLOOD COUNT 3.22 10*6/uL (4.10-5.10); RED CELL DISTRI WIDTH 13.3 % (0-14.5); WHITE BLOOD COUNT 5.7 10*3/uL (4.8-10.8)
[2022-07-20 17:00] LABS: POTASSIUM 4.2 mmol/L (3.4-5.1); TOTAL PROTEIN 6.1 gm/dL (6.0-8.0)
== END | disposition home or self-care (01) ==
LOC: LAB 16:24
PROVIDERS: ATTEND Speech-Language Pathologist
DX: Z51.12 Encounter for antineoplastic immunotherapy (principal); Z11.1 Encounter for screening for respiratory tuberculosis; C56.9 Malignant neoplasm of unspecified ovary